=== PATIENT | male | born 1995 | race African-American/Black ===

== ENCOUNTER 2016-04-02 16:05 | Emergency (ER) | payer OTHER, SELFPAY ==
[2016-04-02 17:05] LABS: MEAN CORPUSCULAR HEMOGLOBIN 30.2 pg (27.0-33.0); MEAN CORPUSCULAR HGB CONC 34.1 g/dl (32.0-36.5); MEAN CORPUSCULAR VOLUME 88.8 fl (80.0-96.0); RED CELL DISTRIBUTION WIDTH 12.4 % (11.5-14.5)
[2016-04-02 17:19] LABS: AMPHETAMINES LEVEL URINE NEGATIVE (NEGATIVE); BENZODIAZEPINES URINE NEGATIVE (NEGATIVE); COCAINE METABOLITE URINE NEGATIVE (NEGATIVE); CONTROL LINE INT CTR LINE PRESENT; METHADONE URINE NEGATIVE (NEGATIVE); OPIATES URINE NEGATIVE (NEGATIVE); TRICYCLIC ANTIDEPRESS URINE NEGATIVE (NEGATIVE)
[2016-04-02 17:34] LABS: ALBUMIN 4.1 GM/DL (3.2-5.2); ALBUMIN/GLOBULIN RATIO 1.32 (1.00-1.93); ALKALINE PHOSPHATASE 74 U/L (45-117); ALT/SGPT 21 U/L (12-78); ANION GAP 9 MEQ/L (8-16); AST/SGOT 20 U/L (15-37); BILIRUBIN,DIRECT 0.2 MG/DL (0.0-0.2); BILIRUBIN,TOTAL 0.9 MG/DL (0.2-1.0); BLOOD UREA NITROGEN 15 MG/DL (7-18); CALCIUM LEVEL 9.3 MG/DL (8.5-10.1); CARBON DIOXIDE LEVEL 28 MEQ/L (21-32); CHLORIDE LEVEL 106 MEQ/L (98-107); CREATININE FOR GFR 1.11 MG/DL (0.70-1.30); GLOMERULAR FILTRATION RATE > 60.0 (>60); GLUCOSE, FASTING 98 MG/DL (70-105); SODIUM LEVEL 143 MEQ/L (136-145); TOTAL PROTEIN 7.2 GM/DL (6.4-8.2)
--- NOTE | 2016-04-02 18:21 | EDDOCDS ---
Physician Documentation [facility] Name: Jonatan England Age: 20 yrs Sex: Male : 1995 Arrival Date: 04/02/2016 Time: 16:05 Bed [facility] Private MD: Alfred Garcia Disposition: 04/02/16 18:09 Discharged to Home/Self Care. Impression: Major depressive disorder, single episode, mild. - Condition is Stable. - Discharge Instructions: Depression, Adult. - Medication Reconciliation, Local Pharmacy Hours form. - Follow up: Alfred Garcia DO; When: 2 - 3 days; Reason: Recheck today's complaints. Follow up: [facility]; When: 2 - 3 days; Reason: Recheck today's complaints. - Problem is new. - Symptoms have improved. - Notes: You were seen in the ED for your depression. Bloodwork showed no other acute medical findings at this time. As you are having no thoughts of harming self or others you may return home to see Dr. Garcia for recheck as well as the mental health referral provided to you by your psychosocial assesor for counseling referral - please call to arrange these appointments in the morning. Return to the ED for any worsening depression, thoughts of harming self or other concerns. Historical: - Allergies: no known allergies; - Home Meds: 1. Fluoxetine Unknown Oral Unknown (Last dose: Unknown) - PMHx: Depression; Anxiety; codependency; - PSHx: none; - Social history: Smoking status: Patient uses tobacco products, light tobacco smoker. No barriers to communication noted, The patient speaks fluent Belgian, The patient lives. - Family history: No immediate family members are acutely ill. - : Unable to assess if pt is on anticoagulants. Unable to Verify Home Med List with the patient / caregiver. - Exposure Risk Screening:: None identified. Vital Signs: 04/02 16:07 BP 117 / 69; Pulse 88; Resp 16; Temp 96.9; Pulse Ox 98% ; Weight 61.23 kg / 134.99 lbs; cmb Height 6 ft. 4 in. (193.04 cm); Pain 0/10; 16:07 Body Mass Index 16.43 (61.23 kg, 193.04 cm) cmb MDM: 16:41 Consult PFS/PSA/Senior Procurement Specialist ordered. br1 16:41 PSA/PFS to call Nursing Telephoto Installer, to enter patient data on [place] Safe Act if patient br1 involuntarily admitted or transferred for SI or HI ordered. 16:41 Confirm accurate psychiatric medication list and times of last dosage ordered. br1 16:41 Detain Pt Until Medically/PFS Cleared ordered. br1 16:41 Acetaminophen Level Ordered. EDMS 16:41 Basic Metabolic Profile Ordered. EDMS 16:41 Complete Blood Count Ordered. EDMS 16:41 Drug Eval Toxicology ED Only Ordered. EDMS 16:41 Ethyl Alcohol (ethanol) Ordered. EDMS 16:41 Liver Profile Ordered. EDMS 16:41 Salicylate Level Ordered. EDMS 16:41 Thyroid Stimulating Hormone Ordered. EDMS 17:17 Financial registration complete. zo 17:19 [facility] Payment Agreement was scanned into [employer] and attached to record. zo 18:06 Acetaminophen Level Reviewed. br1 18:06 Drug Eval Toxicology ED Only Reviewed. br1 18:06 Salicylate Level Reviewed. br1 18:06 Basic Metabolic Profile Reviewed. br1 18:06 Complete Blood Count Reviewed. br1 18:06 Ethyl Alcohol (ethanol) Reviewed. br1 18:06 Liver Profile Reviewed. br1 18:06 Thyroid Stimulating Hormone Reviewed. br1 18:07 Consult PFS/PSA/Socail Worker: Cleared medically for eval ordered. br1 18:15 PSA Outpatient Referrals was scanned into [employer] and attached to record. jl 18:15 Consult PFS/PSA/Socail Worker: Cleared medically for eval complete. jl 18:16 Consult PFS/PSA/Senior Procurement Specialist complete. jl Signatures: Dispatcher [employer] EDRI Corey Cartwright, PSA PSA Kamila Aparicio Brian, MD MD br1 Donnell Curtis,RN RN mb9 The chart was reviewed and I authenticate all verbal orders and agree with the evaluation and treatment provided.Corrections: (The following items were deleted from the chart) 18:07 16:32 REGULAR DIET PLASTIC SANTOS+DIET ordered. EDMS EDMS 18:17 16:41 Consult PFS/PSA/Senior Procurement Specialist: Patient's case requires discussion with on-call br1 Psychiatrist ordered. br1 Attachments: 17:19 [facility] Payment Agreement zo MTDD
--- NOTE | 2016-04-02 18:21 | EDDOCDS ---
Nurse's Notes [facility] Name: Jonatan England Age: 20 yrs Sex: Male : 1995 Arrival Date: 04/02/2016 Time: 16:[address] [facility] Private MD: Alfred Garcia Diagnosis: Major depressive disorder, single episode, mild Presentation: 04/02 16:19 Presenting complaint: Patient states: "Last time I was here I had to go to [place] [address] mental health facility. I got really depressed and suicidal. I was on medications and I haven't taken them in a while because nobody told to stop or keep taking them and I just felt like I needed to come and talk to somebody.". pt denies SI/HI. Mental Health Triage Level: Level 1- Pt displays no suicidal or homicidal ideations and does not appear to be a danger to self or others. Adult Sepsis Screening: The patient does not have new or worsening altered mentation. Patient's respiratory rate is less than 22. Systolic blood pressure is greater than 100. Patient has a qSOFA score of 0- Negative Sepsis Screen. Suicide/Homicide risk assessment- the patient denies having any suicidal and/or homicidal ideations and does not present with any other emotional, behavioral or mental health complaints. Status: Patient is not a dental services director or dependent. Transition of care: patient was not received from another setting of care. 16:19 Acuity: ARIANNA Level 3 [facility] 16:19 Method Of Arrival: Walkin/Carried/[facility] Triage Assessment: 16:26 General: Appears in no apparent distress, Behavior is appropriate for age, cooperative. mb9 Pain: Denies pain. HIV screening NA for this visit Offered previously. Respiratory: Airway is patent Respiratory effort is even, unlabored. Historical: - Allergies: no known allergies; - Home Meds: 1. Fluoxetine Unknown Oral Unknown (Last dose: Unknown) - PMHx: Depression; Anxiety; codependency; - PSHx: none; - Social history: Smoking status: Patient uses tobacco products, light tobacco smoker. No barriers to communication noted, The patient speaks fluent Uzbek, The patient lives. - Family history: No immediate family members are acutely ill. - : Unable to assess if pt is on anticoagulants. Unable to Verify Home Med List with the patient / caregiver. - Exposure Risk Screening:: None identified. Screenin:12 Screening information is obtained from the patient. Fall risk: No risks identified. mb9 Assistance ADL's: requires no assistance with activities of daily living. Abuse/DV Screen: The patient / caregiver reports he/she is: not in a situation that causes fear, pain or injury. Nutritional screening: No deficits noted. Advance Directives: There is no active DNR order. home support is adequate. Assessment: 17:17 Reassessment: Patient appears in no apparent distress at this time. General: Appears mb9 comfortable, Behavior is appropriate for age, cooperative. Respiratory: Airway is patent Respiratory effort is even, unlabored. 18:12 Reassessment: Patient appears in no apparent distress at this time. General: Appears in mb9 no apparent distress, comfortable, Behavior is appropriate for age, cooperative. Respiratory: Airway is patent Respiratory effort is even, unlabored. Vital Signs: 16:07 BP 117 / 69; Pulse 88; Resp 16; Temp 96.9; Pulse Ox 98% ; Weight 61.23 kg; Height 6 ft. cmb 4 in. (193.04 cm); Pain 0/10; 16:07 Body Mass Index 16.43 (61.23 kg, 193.04 cm) [facility] Vitals: 16:07 Log In Time: April 02, 2016 at 16:05. [facility] ED Course: 16:07 Patient visited by Edna Trejo. cmb 16:07 Alfred Garcia DO is Private Physician. cmb 16:07 Patient moved to [facility] cmb 16:09 RN notified that patient meets Red Flag criteria. cmb 16:10 Patient moved to [facility] sew 16:16 Neo Asencio MD is Attending Physician. br1 16:22 Triage Initiated mb9 16:34 Patient visited by Chayo Lim. sew 16:34 Psych Safety Check: Location: Psych Room. Visual Assessment: Cooperative. sew 16:41 Patient visited by Neo Asencio MD. br1 17:10 Psych Safety Check: Location: Psych Room. Visual Assessment: Cooperative. mb9 17:16 Patient visited by Donnell Curtis RN. mb9 17:19 [facility] Payment Agreement was scanned into [employer] and attached to record. zo 17:24 Patient name changed from Khrafael\\S\\\\S\\England\\S\\ to Khane\\S\\ \\S\\England. EDMS 17:29 Patient visited by Chayo Lim. sew 17:29 Psych Safety Check: Location: Psych Room. Visual Assessment: Cooperative. sew 17:41 Patient visited by Chayo Lim. sew 17:41 Psych Safety Check: Location: Psych Room. Visual Assessment: Cooperative. sew 17:53 Psych Safety Check: Location: Psych Room. Visual Assessment: Cooperative. sew 17:54 Patient visited by Chayo Lim. sew 17:54 Patient visited by Corey Cartwright PSA. jl 18:09 Alfred Garcia DO is Referral Physician. br1 18:09 [facility] is Referral Physician. br1 18:12 The patient / caregiver is instructed regarding the plan of care and ED course. mb9 18:12 Psych Safety Check: Location: Psych Room. Visual Assessment: Cooperative. mb9 18:12 No IV's were initiated during this patient's visit. No procedures done that require mb9 assistance. 18:15 GARY Outpatient Referrals was scanned into [employer] and attached to record. jl Order Results: Lab Order: Acetaminophen Level; SPEC'M 04/02/16 16:53 Test: ACETAMINOPHEN LEVEL; Value: < 2.0; Range: 10.0-30.0; Abnormal: Below low normal; Units: UG/ML; Status: F Lab Order: Basic Metabolic Profile; SPEC'M 04/02/16 16:53 Test: GLUCOSE, FASTING; Value: 98; Range: 70-105; Units: MG/DL; Status: F Test: BLOOD UREA NITROGEN; Value: 15; Range: 7-18; Units: MG/DL; Status: F Test: CREATININE FOR GFR; Value: 1.11; Range: 0.70-1.30; Units: MG/DL; Status: F Test: GLOMERULAR FILTRATION RATE; Value: > 60.0; Range: >60; Status: F Test: SODIUM LEVEL; Value: 143; Range: 136-145; Units: MEQ/L; Status: F Test: POTASSIUM SERUM; Value: 4.0; Range: 3.5-5.1; Units: MEQ/L; Status: F Test: CHLORIDE LEVEL; Value: 106; Range: 98-107; Units: MEQ/L; Status: F Test: CARBON DIOXIDE LEVEL; Value: 28; Range: 21-32; Units: MEQ/L; Status: F Test: ANION GAP; Value: 9; Range: 8-16; Units: MEQ/L; Status: F Test: CALCIUM LEVEL; Value: 9.3; Range: 8.5-10.1; Units: MG/DL; Status: F Test Note: ; Units are mL/min/1.73 m2 Chronic Kidney Disease Staging per NKF: Stage I & II GFR >=60 Normal to Mildly Decreased Stage III GFR 30-59 Moderately Decreased Stage IV GFR 15-29 Severely Decreased Stage V GFR <15 Very Little GFR Left ESRD GFR <15 on TERMINAL OPERATOR Lab Order: Complete Blood Count; SPEC'M 04/02/16 16:53 Test: WHITE BLOOD COUNT; Value: 5.0; Range: 4.0-10.0; Units: K/mm3; Status: F Test: RED BLOOD COUNT; Value: 5.09; Range: 4.30-6.10; Units: M/mm3; Status: F Test: HEMOGLOBIN; Value: 15.4; Range: 14.0-18.0; Units: g/dl; Status: F Test: HEMATOCRIT; Value: 45.2; Range: 42.0-52.0; Units: %; Status: F Test: MEAN CORPUSCULAR VOLUME; Value: 88.8; Range: 80.0-96.0; Units: fl; Status: F Test: MEAN CORPUSCULAR HEMOGLOBIN; Value: 30.2; Range: 27.0-33.0; Units: pg; Status: F Test: MEAN CORPUSCULAR HGB CONC; Value: 34.1; Range: 32.0-36.5; Units: g/dl; Status: F Test: RED CELL DISTRIBUTION WIDTH; Value: 12.4; Range: 11.5-14.5; Units: %; Status: F Test: PLATELET COUNT, AUTOMATED; Value: 193; Range: 150-450; Units: k/mm3; Status: F Lab Order: Drug Eval Toxicology ED Only; SPEC'M 04/02/16 16:53 Test: AMPHETAMINES LEVEL URINE; Value: NEGATIVE; Range: NEGATIVE; Status: F Test: BARBITURATES URINE; Value: NEGATIVE; Range: NEGATIVE; Status: F Test: BENZODIAZEPINES URINE; Value: NEGATIVE; Range: NEGATIVE; Status: F Test: CANNABINOIDS URINE; Value: POSITIVE; Range: NEGATIVE; Abnormal: Above high normal; Status: F Test: COCAINE METABOLITE URINE; Value: NEGATIVE; Range: NEGATIVE; Status: F Test: METHADONE URINE; Value: NEGATIVE; Range: NEGATIVE; Status: F Test: OPIATES URINE; Value: NEGATIVE; Range: NEGATIVE; Status: F Test: TRICYCLIC ANTIDEPRESS URINE; Value: NEGATIVE; Range: NEGATIVE; Status: F Test Note: ; FALSE POSITIVE RESULTS CAN BE CAUSED BY THE USE OF PANTOPRAZOLE (PROTONIX). Lab Order: Ethyl Alcohol (ethanol); SPEC' 04/02/16 16:53 Test: ETHYL ALCOHOL (ETHANOL); Value: < 0.003; Range: 0.000-0.010; Units: %; Status: F Lab Order: Liver Profile; [facility] 04/02/16 16:53 Test: AST/SGOT; Value: 20; Range: 15-37; Units: U/L; Status: F Test: ALT/SGPT; Value: 21; Range: 12-78; Units: U/L; Status: F Test: ALKALINE PHOSPHATASE; Value: 74; Range: 45-117; Units: U/L; Status: F Test: BILIRUBIN,TOTAL; Value: 0.9; Range: 0.2-1.0; Units: MG/DL; Status: F Test: BILIRUBIN,DIRECT; Value: 0.2; Range: 0.0-0.2; Units: MG/DL; Status: F Test: TOTAL PROTEIN; Value: 7.2; Range: 6.4-8.2; Units: GM/DL; Status: F Test: ALBUMIN; Value: 4.1; Range: 3.2-5.2; Units: GM/DL; Status: F Test: ALBUMIN/GLOBULIN RATIO; Value: 1.32; Range: 1.00-1.93; Status: F Lab Order: Salicylate Level; SPEC 04/02/16 16:53 Test: SALICYLATE LEVEL; Value: < 1.7; Range: 5.0-30.0; Abnormal: Below low normal; Units: MG/DL; Status: F Lab Order: Thyroid Stimulating Hormone; 04/02/16 16:53 Test: THYROID STIMULATING HORMONE; Value: 0.412; Range: 0.358-3.740; Units: uIU/ML; Status: F Outcome: 18:09 Discharge ordered by Provider. br1 18:19 Discharge Assessment: Patient awake, alert and oriented x 3. No cognitive and/or mb9 functional deficits noted. Patient verbalized understanding of disposition instructions. patient administered narcotics - no. The following High Risk Discharge criteria are identified: None. Discharged to home ambulatory. Condition: good Condition: stable Condition: improved. Discharge instructions given to patient, Instructed on discharge instructions, follow up and referral plans. medication usage, Demonstrated understanding of instructions, medications, Pt was receptive of discharge instructions/ teaching. No special radiology studies were completed. Property :Personal belongings accompany Pt. 18:20 Patient left the ED. mb9 Signatures: Dispatcher [employer] EDMS Corey Cartwright PSA PSA jl Olin, Zoeann zo Roggie, Brian, MD MD br1 Edna Trejo Sarah sew Belles, MichaelRN RN mb9 DEE
--- NOTE | 2016-04-04 19:21 | EDDOCDS ---
Physician Documentation [facility] Name: Jonatan England Age: 20 yrs Sex: Male : 1995 Arrival Date: 04/02/2016 Time: 16:05 Bed [facility] Private MD: Alfred Garcia Disposition: 04/02/16 18:09 Discharged to Home/Self Care. Impression: Major depressive disorder, single episode, mild. - Condition is Stable. - Discharge Instructions: Depression, Adult. - Medication Reconciliation, Local Pharmacy Hours form. - Follow up: Alfred Garcia DO; When: 2 - 3 days; Reason: Recheck today's complaints. Follow up: [facility]; When: 2 - 3 days; Reason: Recheck today's complaints. - Problem is new. - Symptoms have improved. - Notes: You were seen in the ED for your depression. Bloodwork showed no other acute medical findings at this time. As you are having no thoughts of harming self or others you may return home to see Dr. Garcia for recheck as well as the mental health referral provided to you by your psychosocial assesor for counseling referral - please call to arrange these appointments in the morning. Return to the ED for any worsening depression, thoughts of harming self or other concerns. Historical: - Allergies: no known allergies; - Home Meds: 1. Fluoxetine Unknown Oral Unknown (Last dose: Unknown) - PMHx: Depression; Anxiety; codependency; - PSHx: none; - Social history: Smoking status: Patient uses tobacco products, light tobacco smoker. No barriers to communication noted, The patient speaks fluent Croatian, The patient lives. - Family history: No immediate family members are acutely ill. - : Unable to assess if pt is on anticoagulants. Unable to Verify Home Med List with the patient / caregiver. - Exposure Risk Screening:: None identified. Vital Signs: 04/02 16:07 BP 117 / 69; Pulse 88; Resp 16; Temp 96.9; Pulse Ox 98% ; Weight 61.23 kg / 134.99 lbs; cmb Height 6 ft. 4 in. (193.04 cm); Pain 0/10; 16:07 Body Mass Index 16.43 (61.23 kg, 193.04 cm) cmb MDM: 16:41 Consult PFS/PSA/Feed Handler ordered. br1 16:41 PSA/PFS to call Nursing Neon Sign Worker, to enter patient data on [place] Safe Act if patient br1 involuntarily admitted or transferred for SI or HI ordered. 16:41 Confirm accurate psychiatric medication list and times of last dosage ordered. br1 16:41 Detain Pt Until Medically/PFS Cleared ordered. br1 16:41 Acetaminophen Level Ordered. EDMS 16:41 Basic Metabolic Profile Ordered. EDMS 16:41 Complete Blood Count Ordered. EDMS 16:41 Drug Eval Toxicology ED Only Ordered. EDMS 16:41 Ethyl Alcohol (ethanol) Ordered. EDMS 16:41 Liver Profile Ordered. EDMS 16:41 Salicylate Level Ordered. EDMS 16:41 Thyroid Stimulating Hormone Ordered. EDMS 17:17 Financial registration complete. zo 17:19 [facility] Payment Agreement was scanned into [employer] and attached to record. zo 18:06 Acetaminophen Level Reviewed. br1 18:06 Drug Eval Toxicology ED Only Reviewed. br1 18:06 Salicylate Level Reviewed. br1 18:06 Basic Metabolic Profile Reviewed. br1 18:06 Complete Blood Count Reviewed. br1 18:06 Ethyl Alcohol (ethanol) Reviewed. br1 18:06 Liver Profile Reviewed. br1 18:06 Thyroid Stimulating Hormone Reviewed. br1 18:07 Consult PFS/PSA/Socail Worker: Cleared medically for eval ordered. br1 18:15 PSA Outpatient Referrals was scanned into [employer] and attached to record. jl 18:15 Consult PFS/PSA/Socail Worker: Cleared medically for eval complete. jl 18:16 Consult PFS/PSA/Feed Handler complete. jl 18:20 PSA/PFS to call Nursing Neon Sign Worker, to enter patient data on [place] Safe Act if patient mb9 involuntarily admitted or transferred for SI or HI complete. 04/03 10:18 T-Sheet-- Draft Copy was scanned into [employer] and attached to record. gb Signatures: Dispatcher [employer] EDMS Corey Cartwright, PSA PSA Vernell Norwood, Reg Reg Kamila Mcmullen Brian, MD MD br1 Donnell Curtis RN RN mb9 The chart was reviewed and I authenticate all verbal orders and agree with the evaluation and treatment provided.Corrections: (The following items were deleted from the chart) 04/02 18:07 16:32 REGULAR DIET PLASTIC SANTOS+DIET ordered. EDMS EDMS 18:17 16:41 Consult PFS/PSA/Feed Handler: Patient's case requires discussion with on-call moraima Psychiatrist ordered. moraima Attachments: 17:19 [facility] Payment Agreement zo 04/03 10:18 T-Sheet-- Draft Copy gb Chart Complete MTDD
--- NOTE | 2016-04-04 19:21 | EDDOCDS ---
Nurse's Notes Name: Jonatan England Age: 20 yrs Sex: Male : 1995 Arrival Date: 04/02/2016 Time: 16:05 Bed [facility] Private MD: Alfred Garcia Diagnosis: Major depressive disorder, single episode, mild Presentation: 04/02 16:19 Presenting complaint: Patient states: "Last time I was here I had to go to [place] [address] mental health facility. I got really depressed and suicidal. I was on medications and I haven't taken them in a while because nobody told to stop or keep taking them and I just felt like I needed to come and talk to somebody.". pt denies SI/HI. Mental Health Triage Level: Level 1- Pt displays no suicidal or homicidal ideations and does not appear to be a danger to self or others. Adult Sepsis Screening: The patient does not have new or worsening altered mentation. Patient's respiratory rate is less than 22. Systolic blood pressure is greater than 100. Patient has a qSOFA score of 0- Negative Sepsis Screen. Suicide/Homicide risk assessment- the patient denies having any suicidal and/or homicidal ideations and does not present with any other emotional, behavioral or mental health complaints. Status: Patient is not a clinical services director or dependent. Transition of care: patient was not received from another setting of care. 16:19 Acuity: ARIANNA Level 3 [facility] 16:19 Method Of Arrival: Walkin/Carried/Asstd [facility] Triage Assessment: 16:26 General: Appears in no apparent distress, Behavior is appropriate for age, cooperative. mb9 Pain: Denies pain. HIV screening NA for this visit Offered previously. Respiratory: Airway is patent Respiratory effort is even, unlabored. Historical: - Allergies: no known allergies; - Home Meds: 1. Fluoxetine Unknown Oral Unknown (Last dose: Unknown) - PMHx: Depression; Anxiety; codependency; - PSHx: none; - Social history: Smoking status: Patient uses tobacco products, light tobacco smoker. No barriers to communication noted, The patient speaks fluent Swedish, The patient lives. - Family history: No immediate family members are acutely ill. - : Unable to assess if pt is on anticoagulants. Unable to Verify Home Med List with the patient / caregiver. - Exposure Risk Screening:: None identified. Screenin:12 Screening information is obtained from the patient. Fall risk: No risks identified. mb9 Assistance ADL's: requires no assistance with activities of daily living. Abuse/DV Screen: The patient / caregiver reports he/she is: not in a situation that causes fear, pain or injury. Nutritional screening: No deficits noted. Advance Directives: There is no active DNR order. home support is adequate. Assessment: 17:17 Reassessment: Patient appears in no apparent distress at this time. General: Appears mb9 comfortable, Behavior is appropriate for age, cooperative. Respiratory: Airway is patent Respiratory effort is even, unlabored. 18:12 Reassessment: Patient appears in no apparent distress at this time. General: Appears in mb9 no apparent distress, comfortable, Behavior is appropriate for age, cooperative. Respiratory: Airway is patent Respiratory effort is even, unlabored. Mental Health Eval: 18:18 Mental health consult is initiated at 17:40. Status: The patient is not a clinical services director or dependent. [facility] Behavioral Health: The patient is not an established patient of [facility] Behavioral Health. Referral Information: Evaluation referral is generated by the patient himself / herself. The patient was referred for evaluation because of ongoing depression & anxiety, with no current treatment. Subjective: The patients chief complaint is "I was sent to [place] a while ago because I felt suicidal and wanted to be watched, but I stopped my Prozac nallely I felt so good". Delusions are denied. Patient's mood is approriate. Hallucinations are denied. .Patient presented to ED requesting assistance with re-entering treatment. He describes suffering from depression & anxiety for much of his life- essentially since he was old enough to recognize it. He denies having any treatment as a child or adolescent, as his mother was an A/D soldier who basically told him that he was fine & didn't need counseling or medication. He states that he was here & transferred to [place] in December. Following D/C he says that he was taking Prozac & scheduled follow up, although admits that he was feeling so well that he did not follow up, nor did he continue the Prozac upon reaching the end of the Rx. He states that he has been steadily feeling more depressed & anxious, prompting his visit here today. He denies having any thoughts of harming himself or anyone else & is presently seeking referrals for follow up. Mental Health history: anxiety, depression, sleep disturbance, suicide ideation without attempts or gestures Mental Health Admissions: [facility]: 12/2015 Current Outpatient Mental Health Services: None. Current living environment is The patient currently lives with a roommate. Patient presents to Emergency Department with the following symptoms within the past 2 weeks: anxiety, depressed mood, sleep disturbance - erratic. Substance abuse: Pt denies. Mental status exam: Patients appearance is appropriate, Patient's behavior is cooperative, Speech is normal. Affect is appropriate. Mood is appropriate. Hallucinations are denied. Appetite is normal. Memory is good. Energy level is normal. Content of thought is normal. Thought process is intact. Cognitive level is oriented to person, place, time and situation Patient's insight is good. Judgement is fair. Rapport with interviewer is good. Suicidal Ideation is denied. Homicidal ideation is denied. Disposition: Medically cleared for disposition by Neo Asencio MD Psychiatric Consult is deferred per ED physician, Dr Asencio. The patient has a safe destination which is home. [facility] Admission Criteria: Not Applicable. Vital Signs: 16:07 BP 117 / 69; Pulse 88; Resp 16; Temp 96.9; Pulse Ox 98% ; Weight 61.23 kg; Height 6 ft. cmb 4 in. (193.04 cm); Pain 0/10; 16:07 Body Mass Index 16.43 (61.23 kg, 193.04 cm) cmb Vitals: 16:07 Log In Time: April 02, 2016 at 16:05. cmb ED Course: 16:07 Patient visited by Edna Trejo. cmb 16:07 Alfred Garcia DO is Private Physician. cmb 16:07 Patient moved to Waiting cmb 16:09 RN notified that patient meets Red Flag criteria. cmb 16:10 Patient moved to [facility] sew 16:16 Neo Asencio MD is Attending Physician. br1 16:22 Triage Initiated mb9 16:34 Patient visited by Chayo Lim. sew 16:34 Psych Safety Check: Location: Psych Room. Visual Assessment: Cooperative. sew 16:41 Patient visited by Neo Asencio MD. br1 17:10 Psych Safety Check: Location: Psych Room. Visual Assessment: Cooperative. mb9 17:16 Patient visited by Donnell Curtis RN. mb9 17:19 [facility] Payment Agreement was scanned into [employer] and attached to record. zo 17:24 Patient name changed from Jonatan\\S\\\\S\\England\\S\\ to Jonatan\\S\\ \\S\\England. EDMS 17:29 Patient visited by Chayo Lim. sew 17:29 Psych Safety Check: Location: Psych Room. Visual Assessment: Cooperative. sew 17:41 Patient visited by Chayo Lim. sew 17:41 Psych Safety Check: Location: Psych Room. Visual Assessment: Cooperative. sew 17:53 Psych Safety Check: Location: Psych Room. Visual Assessment: Cooperative. sew 17:54 Patient visited by Chayo Lim. sew 17:54 Patient visited by Corey Cartwright PSA. jl 18:09 Alfred Garcia DO is Referral Physician. br1 18:09 [facility] is Referral Physician. br1 18:12 The patient / caregiver is instructed regarding the plan of care and ED course. mb9 18:12 Psych Safety Check: Location: Psych Room. Visual Assessment: Cooperative. mb9 18:12 No IV's were initiated during this patient's visit. No procedures done that require mb9 assistance. 18:15 GARY Outpatient Referrals was scanned into [employer] and attached to record. jl 04/03 10:18 T-Sheet-- Draft Copy was scanned into [employer] and attached to record. gb Order Results: Lab Order: Acetaminophen Level; SPEC'M 04/02/16 16:53 Test: ACETAMINOPHEN LEVEL; Value: < 2.0; Range: 10.0-30.0; Abnormal: Below low normal; Units: UG/ML; Status: F Lab Order: Basic Metabolic Profile; SPEC'M 04/02/16 16:53 Test: GLUCOSE, FASTING; Value: 98; Range: 70-105; Units: MG/DL; Status: F Test: BLOOD UREA NITROGEN; Value: 15; Range: 7-18; Units: MG/DL; Status: F Test: CREATININE FOR GFR; Value: 1.11; Range: 0.70-1.30; Units: MG/DL; Status: F Test: GLOMERULAR FILTRATION RATE; Value: > 60.0; Range: >60; Status: F Test: SODIUM LEVEL; Value: 143; Range: 136-145; Units: MEQ/L; Status: F Test: POTASSIUM SERUM; Value: 4.0; Range: 3.5-5.1; Units: MEQ/L; Status: F Test: CHLORIDE LEVEL; Value: 106; Range: 98-107; Units: MEQ/L; Status: F Test: CARBON DIOXIDE LEVEL; Value: 28; Range: 21-32; Units: MEQ/L; Status: F Test: ANION GAP; Value: 9; Range: 8-16; Units: MEQ/L; Status: F Test: CALCIUM LEVEL; Value: 9.3; Range: 8.5-10.1; Units: MG/DL; Status: F Test Note: ; Units are mL/min/1.73 m2 Chronic Kidney Disease Staging per NKF: Stage I & II GFR >=60 Normal to Mildly Decreased Stage III GFR 30-59 Moderately Decreased Stage IV GFR 15-29 Severely Decreased Stage V GFR <15 Very Little GFR Left ESRD GFR <15 on BEEF [employer] Lab Order: Complete Blood Count; SPEC'M 04/02/16 16:53 Test: WHITE BLOOD COUNT; Value: 5.0; Range: 4.0-10.0; Units: K/mm3; Status: F Test: RED BLOOD COUNT; Value: 5.09; Range: 4.30-6.10; Units: M/mm3; Status: F Test: HEMOGLOBIN; Value: 15.4; Range: 14.0-18.0; Units: g/dl; Status: F Test: HEMATOCRIT; Value: 45.2; Range: 42.0-52.0; Units: %; Status: F Test: MEAN CORPUSCULAR VOLUME; Value: 88.8; Range: 80.0-96.0; Units: fl; Status: F Test: MEAN CORPUSCULAR HEMOGLOBIN; Value: 30.2; Range: 27.0-33.0; Units: pg; Status: F Test: MEAN CORPUSCULAR HGB CONC; Value: 34.1; Range: 32.0-36.5; Units: g/dl; Status: F Test: RED CELL DISTRIBUTION WIDTH; Value: 12.4; Range: 11.5-14.5; Units: %; Status: F Test: PLATELET COUNT, AUTOMATED; Value: 193; Range: 150-450; Units: k/mm3; Status: F Lab Order: Drug Eval Toxicology ED Only; SPEC'M 04/02/16 16:53 Test: AMPHETAMINES LEVEL URINE; Value: NEGATIVE; Range: NEGATIVE; Status: F Test: BARBITURATES URINE; Value: NEGATIVE; Range: NEGATIVE; Status: F Test: BENZODIAZEPINES URINE; Value: NEGATIVE; Range: NEGATIVE; Status: F Test: CANNABINOIDS URINE; Value: POSITIVE; Range: NEGATIVE; Abnormal: Above high normal; Status: F Test: COCAINE METABOLITE URINE; Value: NEGATIVE; Range: NEGATIVE; Status: F Test: METHADONE URINE; Value: NEGATIVE; Range: NEGATIVE; Status: F Test: OPIATES URINE; Value: NEGATIVE; Range: NEGATIVE; Status: F Test: TRICYCLIC ANTIDEPRESS URINE; Value: NEGATIVE; Range: NEGATIVE; Status: F Test Note: ; FALSE POSITIVE RESULTS CAN BE CAUSED BY THE USE OF PANTOPRAZOLE (PROTONIX). Lab Order: Ethyl Alcohol (ethanol); SPEC'M 04/02/16 16:53 Test: ETHYL ALCOHOL (ETHANOL); Value: < 0.003; Range: 0.000-0.010; Units: %; Status: F Lab Order: Liver Profile; SPEC'M 04/02/16 16:53 Test: AST/SGOT; Value: 20; Range: 15-37; Units: U/L; Status: F Test: ALT/SGPT; Value: 21; Range: 12-78; Units: U/L; Status: F Test: ALKALINE PHOSPHATASE; Value: 74; Range: 45-117; Units: U/L; Status: F Test: BILIRUBIN,TOTAL; Value: 0.9; Range: 0.2-1.0; Units: MG/DL; Status: F Test: BILIRUBIN,DIRECT; Value: 0.2; Range: 0.0-0.2; Units: MG/DL; Status: F Test: TOTAL PROTEIN; Value: 7.2; Range: 6.4-8.2; Units: GM/DL; Status: F Test: ALBUMIN; Value: 4.1; Range: 3.2-5.2; Units: GM/DL; Status: F Test: ALBUMIN/GLOBULIN RATIO; Value: 1.32; Range: 1.00-1.93; Status: F Lab Order: Salicylate Level; SPEC'M 04/02/16 16:53 Test: SALICYLATE LEVEL; Value: < 1.7; Range: 5.0-30.0; Abnormal: Below low normal; Units: MG/DL; Status: F Lab Order: Thyroid Stimulating Hormone; SPEC'M 04/02/16 16:53 Test: THYROID STIMULATING HORMONE; Value: 0.412; Range: 0.358-3.740; Units: uIU/ML; Status: F Outcome: 04/02 18:09 Discharge ordered by Provider. br1 18:19 Discharge Assessment: Patient awake, alert and oriented x 3. No cognitive and/or mb9 functional deficits noted. Patient verbalized understanding of disposition instructions. patient administered narcotics - no. The following High Risk Discharge criteria are identified: None. Discharged to home ambulatory. Condition: good Condition: stable Condition: improved. Discharge instructions given to patient, Instructed on discharge instructions, follow up and referral plans. medication usage, Demonstrated understanding of instructions, medications, Pt was receptive of discharge instructions/ teaching. No special radiology studies were completed. Property :Personal belongings accompany Pt. 18:20 Patient left the ED. mb9 Signatures: Dispatcher [employer] EDMS Corey Cartwright, PSA PSA Vernell Norwood, Kamila Tsang Brian, MD MD br1 Edna Trejo Sarah sew Belles, Michael, RN RN mb9 Chart Complete MTDD
--- NOTE | 2016-04-04 19:21 | EDDOCDS ---
Physician Documentation [facility] Name: Jonatan England Age: 20 yrs Sex: Male : 1995 Arrival Date: 04/02/2016 Time: 16:05 Bed [facility] Private MD: Alfred Garcia Disposition: 04/02/16 18:09 Discharged to Home/Self Care. Impression: Major depressive disorder, single episode, mild. - Condition is Stable. - Discharge Instructions: Depression, Adult. - Medication Reconciliation, Local Pharmacy Hours form. - Follow up: Alfred Garcia DO; When: 2 - 3 days; Reason: Recheck today's complaints. Follow up: [facility]; When: 2 - 3 days; Reason: Recheck today's complaints. - Problem is new. - Symptoms have improved. - Notes: You were seen in the ED for your depression. Bloodwork showed no other acute medical findings at this time. As you are having no thoughts of harming self or others you may return home to see Dr. Garcia for recheck as well as the mental health referral provided to you by your psychosocial assesor for counseling referral - please call to arrange these appointments in the morning. Return to the ED for any worsening depression, thoughts of harming self or other concerns. Historical: - Allergies: no known allergies; - Home Meds: 1. Fluoxetine Unknown Oral Unknown (Last dose: Unknown) - PMHx: Depression; Anxiety; codependency; - PSHx: none; - Social history: Smoking status: Patient uses tobacco products, light tobacco smoker. No barriers to communication noted, The patient speaks fluent Gibraltarian, The patient lives. - Family history: No immediate family members are acutely ill. - : Unable to assess if pt is on anticoagulants. Unable to Verify Home Med List with the patient / caregiver. - Exposure Risk Screening:: None identified. Vital Signs: 04/02 16:07 BP 117 / 69; Pulse 88; Resp 16; Temp 96.9; Pulse Ox 98% ; Weight 61.23 kg / 134.99 lbs; cmb Height 6 ft. 4 in. (193.04 cm); Pain 0/10; 16:07 Body Mass Index 16.43 (61.23 kg, 193.04 cm) cmb MDM: 16:41 Consult PFS/PSA/Insulation Cupola Operator ordered. br1 16:41 PSA/PFS to call Nursing Flight Operations Inspector, to enter patient data on [place] Safe Act if patient br1 involuntarily admitted or transferred for SI or HI ordered. 16:41 Confirm accurate psychiatric medication list and times of last dosage ordered. br1 16:41 Detain Pt Until Medically/PFS Cleared ordered. br1 16:41 Acetaminophen Level Ordered. EDMS 16:41 Basic Metabolic Profile Ordered. EDMS 16:41 Complete Blood Count Ordered. EDMS 16:41 Drug Eval Toxicology ED Only Ordered. EDMS 16:41 Ethyl Alcohol (ethanol) Ordered. EDMS 16:41 Liver Profile Ordered. EDMS 16:41 Salicylate Level Ordered. EDMS 16:41 Thyroid Stimulating Hormone Ordered. EDMS 17:17 Financial registration complete. zo 17:19 [place] Payment Agreement was scanned into [employer] and attached to record. zo 18:06 Acetaminophen Level Reviewed. br1 18:06 Drug Eval Toxicology ED Only Reviewed. br1 18:06 Salicylate Level Reviewed. br1 18:06 Basic Metabolic Profile Reviewed. br1 18:06 Complete Blood Count Reviewed. br1 18:06 Ethyl Alcohol (ethanol) Reviewed. br1 18:06 Liver Profile Reviewed. br1 18:06 Thyroid Stimulating Hormone Reviewed. br1 18:07 Consult PFS/PSA/Socail Worker: Cleared medically for eval ordered. br1 18:15 PSA Outpatient Referrals was scanned into [employer] and attached to record. jl 18:15 Consult PFS/PSA/Socail Worker: Cleared medically for eval complete. jl 18:16 Consult PFS/PSA/Insulation Cupola Operator complete. jl 18:20 PSA/PFS to call Nursing Flight Operations Inspector, to enter patient data [place] Safe [place] if patient mb9 involuntarily admitted or transferred for SI or HI complete. 04/03 10:18 T-Sheet-- Draft Copy was scanned into [employer] and attached to record. gb Signatures: Dispatcher [employer] EDMS Corey Cartwright, PSA PSA Vernell Norwood, Reg Reg Kamila Mcmullen Brian, MD MD br1 Donnell Curtis RN RN mb9 The chart was reviewed and I authenticate all verbal orders and agree with the evaluation and treatment provided.Corrections: (The following items were deleted from the chart) 04/02 18:07 16:32 REGULAR DIET PLASTIC SANTOS+DIET ordered. EDMS EDMS 18:17 16:41 Consult PFS/PSA/Insulation Cupola Operator: Patient's case requires discussion with on-call moraima Psychiatrist ordered. moraima Attachments: 17:19 [place] Payment Agreement zo 04/03 10:18 T-Sheet-- Draft Copy gb Chart Complete MTDD
== END 2016-04-02 18:20 | disposition home or self-care (01) ==
LOC: M ED 16:05
DX: F32.0 Major depressive disorder, single episode, mild (principal); F41.9 Anxiety disorder, unspecified; Z65.8 Other specified problems related to psychosocial circumstances; Z72.0 Tobacco use
CPT/HCPCS: 80048; 80076; 80306; 84443; 85027; 99283; G0480

== ENCOUNTER 2016-09-16 01:51 | Emergency (ER) | payer OTHER ==
[2016-09-16] MEDS ORDERED: diphenhydrAMINE 25 MG CAP PO ONE (03:00)
[2016-09-16 03:33] VITALS: BP 126/63
== END 2016-09-16 03:51 | disposition home or self-care (01) ==
LOC: M ED 03:00
DX: L29.9 Pruritus, unspecified (principal)

== ENCOUNTER → 2018-06-15 | Outpatient (REF) | payer OTHER ==
[2018-06-15 14:44] LABS: CHLAMYDIA DNA AMPLIFICATION NEGATIVE (NEGATIVE); GC DNA AMPLIFICATION NEGATIVE (NEGATIVE)
[2018-06-15 18:09] LABS: BASO # 0.1 10^3/uL (0.0-0.2); BASO % 1.1 % (0.0-1.0); EOS # 0.1 10^3/uL (0.0-0.50); EOS % 1.9 % (0.0-3.0); HEMATOCRIT 48.8 % (42.0-52.0); HEMOGLOBIN 16.4 g/dl (13.5-17.5); LYMPH # 1.7 10^3/uL (1.5-6.5); LYMPH % 35.9 % (24.0-44.0); MEAN CORPUSCULAR HEMOGLOBIN 29.3 pg (27.0-33.0); MEAN CORPUSCULAR HGB CONC 33.6 g/dl (32.0-36.5); MEAN CORPUSCULAR VOLUME 87.3 fl (80.0-96.0); MONO # 0.4 10^3/uL (0.0-0.8); MONO % 8.8 % (0.0-5.0); NEUTROPHILS # 2.5 10^3/uL (1.8-7.7); NEUTROPHILS % 52.3 % (36.0-66.0); PLATELET COUNT, AUTOMATED 248 10^3/uL (150-450); RED BLOOD COUNT 5.59 10^6/uL (4.30-6.10); WHITE BLOOD COUNT 4.8 10^3/uL (4.0-10.0)
[2018-06-15 18:26] LABS: ALBUMIN 4.5 GM/DL (3.2-5.2); ALT/SGPT 16 U/L (12-78); BILIRUBIN,TOTAL 0.9 MG/DL (0.2-1.0); BLOOD UREA NITROGEN 11 MG/DL (7-18); CARBON DIOXIDE LEVEL 28 MEQ/L (21-32); CHLORIDE LEVEL 102 MEQ/L (98-107); CHOLESTEROL LEVEL 142 MG/DL (<200); CHOLESTEROL RISK RATIO 3.302 (<5); CREATININE FOR GFR 1.12 MG/DL (0.70-1.30); GLOMERULAR FILTRATION RATE > 60.0 (>60); GLUCOSE, FASTING 89 MG/DL (70-100); HDL CHOLESTEROL 43 MG/DL (>40); LDL CHOLESTEROL 88 MG/DL (<100); NON-HDL-C 99 MG/DL; POTASSIUM SERUM 4.2 MEQ/L (3.5-5.1); SODIUM LEVEL 139 MEQ/L (136-145); TOTAL 25(OH) VITAMIN D 19.1 NG/ML (30.0-100.0); TOTAL PROTEIN 7.9 GM/DL (6.4-8.2); TRIGLYCERIDES LEVEL 53 MG/DL (<150)
[2018-06-15 18:54] LABS: HEMOGLOBIN A1c 5.3 %
[2018-06-16 10:57] LABS: HEPATITIS B SURFACE ANTIBODY POSITIVE (POSITIVE); HEPATITIS B SURFACE ANTIGEN NEGATIVE (NEGATIVE)
[2018-06-16 11:05] LABS: HEPATITIS C VIRUS ABY INDEX 0.1 INDEX (<0.8); HIV 1&2 SCREEN CENTAUR NEGATIVE (NEGATIVE)
[2018-06-17 08:20] LABS: HEPATITIS A IgG TOTAL Positive (Negative); HSV TYPE II IgG SPECIFIC <0.91 index (0.00-0.90)
== END ==
LOC: M LAB REF 12:22
PROVIDERS: ATTEND Family Medicine
DX: Z11.3 Encounter for screening for infections with a predominantly sexual mode of transmission (principal); Z13.228 Encounter for screening for other metabolic disorders

== ENCOUNTER 2019-07-15 19:27 | Emergency (ER) | payer MEDICAID, OTHER, SELFPAY ==
[~2019-07-15] VITALS: Ht 190.5 cm; Wt 63.6 kg
[2019-07-15 19:27] VITALS: BP 108/69
== END 2019-07-15 20:44 | disposition home or self-care (01) ==
LOC: M ED 19:27
DX: F19.10 Other psychoactive substance abuse, uncomplicated (principal); F22 Delusional disorders; F17.200 Nicotine dependence, unspecified, uncomplicated

== ENCOUNTER 2019-07-20 16:21 | Emergency (ER) | payer SELFPAY ==
[~2019-07-20] VITALS: Ht 193 cm; Wt 63.6 kg
[2019-07-20 17:51] LABS: HEMATOCRIT 44.5 % (42.0-52.0); MEAN CORPUSCULAR HEMOGLOBIN 29.9 pg (27.0-33.0); MEAN CORPUSCULAR HGB CONC 33.7 g/dl (32.0-36.5); MEAN CORPUSCULAR VOLUME 88.6 fl (80.0-96.0); PLATELET COUNT, AUTOMATED 219 10^3/uL (150-450); RED BLOOD COUNT 5.02 10^6/uL (4.30-6.10); WHITE BLOOD COUNT 5.9 10^3/uL (4.0-10.0)
[2019-07-20 18:29] LABS: ACETAMINOPHEN LEVEL < 2.0 UG/ML (10.0-30.0); ALT/SGPT 18 U/L (12-78); AMPHETAMINES LEVEL URINE POSITIVE (NEGATIVE); BARBITURATES URINE NEGATIVE (NEGATIVE); BENZODIAZEPINES URINE NEGATIVE (NEGATIVE); BILIRUBIN,DIRECT 0.3 MG/DL (0.0-0.2); BLOOD UREA NITROGEN 9 MG/DL (7-18); CALCIUM LEVEL 9.8 MG/DL (8.5-10.1); CANNABINOIDS URINE POSITIVE (NEGATIVE); CARBON DIOXIDE LEVEL 26 MEQ/L (21-32); CHLORIDE LEVEL 103 MEQ/L (98-107); COCAINE METABOLITE URINE NEGATIVE (NEGATIVE); CREATININE FOR GFR 1.21 MG/DL (0.70-1.30); ETHYL ALCOHOL (ETHANOL) < 0.003 % (0.000-0.010); GLOMERULAR FILTRATION RATE > 60.0 (>60); GLUCOSE, FASTING 88 MG/DL (70-100); METHADONE URINE NEGATIVE (NEGATIVE); OPIATES URINE NEGATIVE (NEGATIVE); PHENCYCLIDINE URINE NEGATIVE (NEGATIVE); POTASSIUM SERUM 3.7 MEQ/L (3.5-5.1); SALICYLATE LEVEL < 1.7 MG/DL (5.0-30.0); SODIUM LEVEL 137 MEQ/L (136-145); TOTAL PROTEIN 7.2 GM/DL (6.4-8.2)
[2019-07-20] MEDS ORDERED: HALO5TA PO (18:36)
[2019-07-20 21:19] VITALS: BP 124/70
== END 2019-07-20 21:26 | disposition home or self-care (01) ==
LOC: M ED 16:21
DX: F23 Brief psychotic disorder (principal); F60.0 Paranoid personality disorder; Z65.3 Problems related to other legal circumstances; F99 Mental disorder, not otherwise specified; F17.200 Nicotine dependence, unspecified, uncomplicated
CPT/HCPCS: 36415; 80048; 80076; 80307; 84443; 85027; 99283; G0480

== ENCOUNTER 2019-07-22 04:08 | Inpatient (IN) | payer SELFPAY ==
[~2019-07-22] VITALS: Ht 195.6 cm; Wt 58.6 kg
[~2019-07-22 04:08] MED LIST: HALO5TA PO
[2019-07-22 05:49] LABS: ACETAMINOPHEN LEVEL < 2.0 UG/ML (10.0-30.0); ETHYL ALCOHOL (ETHANOL) < 0.003 % (0.000-0.010); SALICYLATE LEVEL < 1.7 MG/DL (5.0-30.0)
[2019-07-22 05:58] LABS: AMPHETAMINES LEVEL URINE POSITIVE (NEGATIVE); BARBITURATES URINE NEGATIVE (NEGATIVE); BENZODIAZEPINES URINE NEGATIVE (NEGATIVE); CANNABINOIDS URINE POSITIVE (NEGATIVE); COCAINE METABOLITE URINE NEGATIVE (NEGATIVE); METHADONE URINE NEGATIVE (NEGATIVE); OPIATES URINE NEGATIVE (NEGATIVE); PHENCYCLIDINE URINE NEGATIVE (NEGATIVE)
[2019-07-22] MEDS: NICOTINE 21MG/24HR 1 EA TRANSDERMAL TD SCH (09:00)
[2019-07-22 10:03] LABS: HEMATOCRIT 47.5 % (42.0-52.0); HEMOGLOBIN 15.9 g/dl (13.5-17.5); MEAN CORPUSCULAR HEMOGLOBIN 29.8 pg (27.0-33.0); MEAN CORPUSCULAR HGB CONC 33.5 g/dl (32.0-36.5); MEAN CORPUSCULAR VOLUME 89.1 fl (80.0-96.0); PLATELET COUNT, AUTOMATED 248 10^3/uL (150-450); RED BLOOD COUNT 5.33 10^6/uL (4.30-6.10); WHITE BLOOD COUNT 6.9 10^3/uL (4.0-10.0)
[2019-07-22 10:18] LABS: ALBUMIN 4.2 GM/DL (3.2-5.2); ALT/SGPT 24 U/L (12-78); BILIRUBIN,DIRECT 0.2 MG/DL (0.0-0.2); BLOOD UREA NITROGEN 17 MG/DL (7-18); CALCIUM LEVEL 9.7 MG/DL (8.5-10.1); CARBON DIOXIDE LEVEL 25 MEQ/L (21-32); CHLORIDE LEVEL 107 MEQ/L (98-107); CREATININE FOR GFR 1.21 MG/DL (0.70-1.30); GLOMERULAR FILTRATION RATE > 60.0 (>60); GLUCOSE, FASTING 81 MG/DL (70-100); SODIUM LEVEL 142 MEQ/L (136-145); TOTAL PROTEIN 7.5 GM/DL (6.4-8.2)
[2019-07-22] MEDS ORDERED: MOM 30ML SUSPENSION UDC PO PRN (12:30)
[2019-07-22] MEDS ORDERED: MAALOX 30 ML SUSP *UDC PO PRN (12:30)
[2019-07-22] MEDS ORDERED: OLANZapine ORAL DISINTEGRATING TAB 5MG PO PRN (12:30)
--- NOTE | 2019-07-22 15:45 | HPEPDOC ---
General Date of Admission July 22, 2019 at 12:24 Date of Service: July 22, 2019 Chief Complaint The patient is a 23-year-old male admitted with a reason for visit of Psychosis. Source: Patient Exam Limitations: No limitations Timing/Duration: Other (not applicable) Severity: Other (not applicable) Associated Symptoms: Other (. Paranoid delusions) History of Present Illness This is a 22 years old male who uses methamphetamine as recreational drug history of paranoid delusion in the past. Again, presented to ED with chief complaints of a paranoid delusions, patient denies suicidal ideation or homicidal ideation. Patient declines any medical complaints such as chest pain, shortness of breath, nausea, vomiting, diarrhea, etc. Home Medications No Active Prescriptions or Reported Meds Allergies Coded Allergies: No Known Allergies (Unverified , 09/16/16) Past Medical History Medical History None Surgical History Hardware at the broken jaw Family History Family history reviewed. No history of diabetes, cancer Social History * Smoker: current smoker Alcohol: Denies Drugs: other (, amphetamine, marijuana and headache. She) A-FIB/CHADSVASC A-FIB History Current/History of A-Fib/PAF?: No Review of Systems Constitutional: Denies: Chills, Fever, Malaise, Night Sweats, Weakness, Fatig ue, Weight Loss, Lethargy, Other Eyes: Denies: Pain, Vision change, Conjunctivae inflammation, Eyelid inflammation, Redness, Other ENT: Denies: Head Aches, Ear Pain, Dysphagia, Sinus Congestion, Post Nasal Drip, Sore Throat, Epistaxis, Other Symptoms Skin: Denies: Rash, Lesions, Jaundice, Bruising, Itching, Dry, Breakdown, Nail Changes, Other Pulmonary: Denies: Dyspnea, Cough, Pleuritic Chest Pain, Other Symptoms Cardiovascular: Denies: Chest Pain, Palpitations, Orthopnea, Paroxysmal Noc. Dyspnea, Edema, Lt Headedness, Other Symptoms Gastrointestinal: Denies: Nausea, Vomiting, Abdominal Pain, Diarrhea, Constipation, Melena, Hematochezia, Other Symptoms Genitourinary: Denies: Dysuria, Frequency, Incontinence, Hematuria, Retention, Other Symptoms Hematologic: Denies: Bruising, Bleeding Excessively, Petecchia, Purpura, Enlarged Lymph Nodes, Other Hematologic Endocrine: Denies: Polydipsia, Polyphagia, Polyuria, Heat Intolerance, Cold Intolerance, Other Endocrine Sx Musculoskeletal: Denies: Neck Pain, Back Pain, Shoulder Pain, Arm Pain, Hand Pain, Leg Pain, Foot Pain, Joint Pain, Muscle Pain, Spasms, Other Symptoms Neurological: Denies: Weakness, Numbness, Incoordination, Change in speech, Confusion, Seizures, Other Symptoms Psych: Reports: Other Psych (denied delusions) Physical Examination General Exam: Positive: Alert, Cooperative Eye Exam: Positive: PERRLA, Conjunctiva & lids normal ENT Exam: Positive: Atraumatic, Mucous membr. moist/pink Neck Exam: Positive: Supple Chest Exam: Positive: Clear to auscultation, Normal air movement Heart Exam: Positive: Rate Normal, Normal S1, Normal S2 Abdomen Exam: Positive: Normal bowel sounds, Soft Extremity Exam: Positive: Normal pulses Skin Exam: Positive: Nl turgor and temperature Neuro Exam: Positive: Strength at 5/5 X4 ext, Sensation Intact, Cranial Nerves 3-12 NL Psych Exam: Positive: Anxiety, Oriented x 3 Vital Signs Vital Signs Date Time Temp Pulse Resp B/P (MAP) Pulse Ox O2 Delivery O2 Flow Rate FiO2 07/22/19 13:59 98.2 89 18 131/69 (89) 100 Room Air Laboratory Data Labs 24H Laboratory Tests 2 07/22/19 04:41: Urine Opiates Screen NEGATIVE, Urine Methadone Screen NEGATIVE, Urine Barbiturates Screen NEGATIVE, Urine Phencyclidine Screen NEGATIVE, Urine Amphetamines Screen POSITIVEH, Urine Benzodiazepines Screen NEGATIVE, Urine Cocaine Metabolite Screen NEGATIVE, Urine Cannabinoids Screen POSITIVEH 07/22/19 05:08: Nucleated Red Blood Cells % (auto) 0.0, Anion Gap 10, Glomerular Filtration Rate > 60.0, Calcium Level 9.7, Total Bilirubin 1.0, Direct Bilirubin 0.2, Aspartate Amino Transf (AST/SGOT) 18, Alanine Aminotransferase (ALT/SGPT) 24, Alkaline Phosphatase 72, Total Protein 7.5, Albumin 4.2, Albumin/Globulin Ratio 1.27, Thyroid Stimulating Hormone (TSH) 1.270, Salicylates Level < 1.7L, Acetaminophen Level < 2.0L, Ethyl Alcohol Level < 0.003 CBC/BMP Laboratory Tests 07/22/19 05:08 Problems (1) Paranoid states (delusional disorders) Status: Acute Problem Text: Patient was admitted to inpatient mental health unit with the diagnosis of paranoid delusions, pt does not have any suicidal or homicidal ideas or plans Patient admitted to inpatient mental health unit for further psychiatric care Individual and group counseling, as per psychiatry Formal surgical intervention as per psychiatry Medical issues at the present time. Please call back as needed (2) Schizophrenia Status: Chronic Problem Text: Medication intervention as per psychiatry Plan / VTE VTE Prophylaxis Ordered?: Yes Plan Anticipated Discharge: ANDREI WANG MD July 22, 2019 15:45
[2019-07-23] VITALS (10 sets, daily range): BP systolic 88–102; BP diastolic 53–67
[2019-07-23] MEDS ORDERED: LORazepam 2 MG/ML VIAL (J2060) IM STA (07:54)
[2019-07-23] MEDS ORDERED: HALOPERIDOL 5MG/ML VIAL (J1630 PER 1) IM STA (07:54)
[2019-07-23] MEDS ORDERED: INFLUENZA QUADRIVALENT PF VACCINE 0.5ML SYRINGE (90686) IM ONE (09:00)
[2019-07-23] MEDS: NICOTINE 21MG/24HR 1 EA TRANSDERMAL TD SCH (09:00)
[2019-07-24 05:56] VITALS: BP 125/61
[2019-07-24] MEDS: NICOTINE 21MG/24HR 1 EA TRANSDERMAL TD SCH (09:00)
[2019-07-24] MEDS: ACETAMINOPHEN TAB 650MG DOSE (2X325MG) PO PRN ×2 (13:58→14:04)
[2019-07-24 16:24] VITALS: BP 120/73
[2019-07-24] MEDS: ARIPiprazole 2 MG TAB PO SCH (21:17)
[2019-07-24] MEDS: traZODone 50 MG TAB PO PRN (21:17)
[2019-07-25 06:21] VITALS: BP 117/71
--- NOTE | 2019-07-25 08:47 | MHHPE ---
DATE OF ADMISSION: 07/22/2019 He was admitted to the inpatient psychiatry unit and attempts, in fact several attempts, have been made to look at interviewing the patient, he has been sedated for the better part of the day, as he had been given medicine to help with agitation earlier on, and he wanted to leave the inpatient unit. In fact, has attempted to look at forcing his way out of it. I am not able to interview him, so the information for the summary is essentially obtained from the emergency room notes. He is [id number], had come to the hospital the previous night as well, and was not answering questions, when seen in triage and was not forming full sentences and indicated somehow that he was paranoid and was asking what was thought to be random questions, and that he had something to say, but he was afraid that if he said that, the staff there would kill him. According to the ER note, he came and said he believed that there was a serial killer who he had seen on television and that he alluded that the killer had been communicating with him through the television. He felt he and his family were in danger, he repeatedly asked for reassurances, and that he felt there were aliens around, and was worried that in fact the staff were aliens. He had been to the emergency room with what was thought be mild paranoid and delusions, and would return home after some reassurance. When seen yesterday in the ER, he was quite concerned that staff were aliens and wanted them to tell him if they were going to kill him, and to just say so. At one point was not sure whether he had made the right decision to come to the emergency room. He also indicated that he had apparently figured out COVID. He was also seen to be increasingly disorganized in his thinking, in reference to connections to his brother and mother through the television and that his brother had told him that he had witnessed a murder. I am unaware if he has had any previous hospitalizations at psychiatry. I am currently unaware of any background history. He was seen by medicine, in the ER as well as the hospitalist on the unit. There is no significant past medical history. He has a history of drug use apparently, and had been using methamphetamines. Urine toxicology upon admission was positive for amphetamines and cannabinoids. I unable to perform a mental status exam, as I am told by the staff that the patient has been sleeping off and on, he had gotten up for his meals, was difficult to arouse. ASSESSMENT: Psychotic disorder, not otherwise specified. Consider an induced psychosis. He was agitated in the morning, was given anti-agitation medications, has been sedated for the better part of the day off and on today. PLAN: He is admitted to the inpatient psychiatry unit and placed on relevant precautions. We will look at obtaining collateral information, and give him anti-agitation medications as indicated. Will also get started on an atypical antipsychotic should it be warranted, and there is evidence that psychosis is not clearly drug induced. Further recommendations will be made depending on the clinical situation. Collateral information if possible would be useful.
[2019-07-25] MEDS: NICOTINE 21MG/24HR 1 EA TRANSDERMAL TD SCH (09:00)
--- NOTE | 2019-07-25 09:13 | MHIPNPDOC ---
[facility] Progress Note Progress Note Inpatient Progress Note Jonatan England MRN: N/A Date of : N/A Date of Service: 07/25/2019 History of Present Illness The patient, a 23-year-old man presents after using methamphetamine, but also being quite paranoid and accusatory, he is admitted out of abundance of caution. Interval History Patient was attempted to met with, however, he refuses to engage in any meaningful interview. He generally states that he does need to be here, but is wholly on amenable to discussing any of the events that brought him in. He generally gets upset whenever this has brought up and states that he would become agitated if further questions are asked and subsequently becomes annoyed and leaves the room. He has had difficulty over the weekend threatening staff that if he is not allowed to leave that he will hurt individuals. Review Of Systems Unable to obtain due to mental status. Psychotherapy None on this visit. Vital Signs Reviewed. Mental Status Examination General: Well dressed with fair hygiene Speech: Spontaneous and fluid Thought processes: Guarded. MSK: Smooth and coordinated gait, no signs of tremors or involuntary orofacial movements Thought content: Guarded Abstract reasoning, and computation: Intact Description of associations: Impaired Description of abnormal or psychotic thoughts: Unknown. Judgment: Impaired Insight: Impaired Orientation: Alert and orientated 3 Cognition: Grossly normal Recent and remote memory: Intact Attention span and concentration: Intact Fund of knowledge: Adequate Mood: "I am done with this" Affect: Irritable Diagnoses Unspecified psychiatric disorder. Methamphetamine use disorder, severe. Assessment and Plan Unspecified psychotic disorder: We will continue to offer current medication regiment as patient appears to be taking it; however, it is unclear whether he will make any progress. Methamphetamine use disorder: Recommend to outpatient rehab floor once discharged. Disposition Patient will likely need further observation. He is still too unstable in order to engage in a meaningful interviewed to understand his current thought process or as to whether he has any antisocial characteristics that are presenting themselves versus psychotic ones. Time Spent 15 minutes. Thursday Vital Signs Vital Signs Date Time Temp Pulse Resp B/P (MAP) Pulse Ox O2 Delivery O2 Flow Rate FiO2 07/25/19 06:21 98.3 78 12 117/71 (86) 98 Room Air Current Medications Current Medications Medications (Trade) Dose Ordered Sig/Fani Route PRN Reason Start Time Stop Time Status Last Admin Dose Admin Acetaminophen (Tylenol Tab) 650 mg Q6HP PRN PO HEADACHE or DISCOMFORT 07/22/19 12:30 Al Hydrox/Mg Hydrox/Simethicone (Mylanta) 30 ml Q4HP PRN PO HEARTBURN/INDIGESTION 07/22/19 12:30 Aripiprazole (AbiLIFY) 2 mg QHS PO 07/24/19 21:00 07/24/19 21:17 Haloperidol (Haldol) 5 mg STAT STAT IM 07/23/19 07:54 07/23/19 07:56 DC 07/23/19 08:08 Home Med (Med Rec Complete!) ASDIRECTED XX 07/22/19 12:00 07/22/19 12:02 DC Lorazepam (Ativan) 2 mg STAT STAT IM 07/23/19 07:54 07/23/19 07:56 DC 07/23/19 08:08 Magnesium Hydroxide (Milk Of Magnesia) 30 ml DAILYPRN PRN PO CONSTIPATION 07/22/19 12:30 Nicotine (Nicoderm Cq 21mg) 1 patch DAILY TD 07/22/19 09:00 Olanzapine (ZyPREXA ZYDIS) 5 mg Q4HP PRN PO AGITATION 07/22/19 12:30 Trazodone HCl (Desyrel) 50 mg QHSP PRN PO INSOMNIA 07/22/19 12:30 07/24/19 21:17 Allergies Coded Allergies: No Known Allergies (Unverified , 09/16/16) ALPHONSO MUÑOZ DO July 25, 2019 09:13
[2019-07-25 15:37] VITALS: BP 115/74
[2019-07-25] MEDS: ARIPiprazole 2 MG TAB PO SCH (21:49)
[2019-07-25] MEDS: traZODone 50 MG TAB PO PRN (22:58)
[2019-07-26 06:12] VITALS: BP 114/57
[2019-07-26] MEDS: NICOTINE 21MG/24HR 1 EA TRANSDERMAL TD SCH (09:00)
--- NOTE | 2019-07-26 09:45 | MHDSPDOC ---
[facility] Discharge Summary Discharge Summary DATE OF ADMISSION: July 22, 2019 at 12:24 DATE OF DISCHARGE: 07/26/19 Discharge Jonatan England MRN: N/A Date of : N/A Date of Service: 07/26/2019 Diagnoses Unspecified psychiatric disorder. Methamphetamine use disorder, severe. History of Present Illness The patient, a 23-year-old man presents after using methamphetamine, but also being quite paranoid and accusatory, he is admitted out of abundance of caution. Consultants Involved Hospitalist/PCP screening Treatment and Progress On The Unit The patient is admitted to the inpatient mental health unit. He is primarily treated supportively of which his paranoia does appear to resolve. He does have difficulty trusting the provider initially. However, after another day of observation the patient did better and had initially been upset and threatened to hurt staff if he is not released. After redirection he reported that he was simply upset and became much more polite and amenable for well over 24 hours before being discharged. He was able to explain his rationale that he had been using prior and had felt quite paranoid now resolved. He had been doing well and had requested to leave. Discharge Assessment 23-year-old man with likely substance induced psychosis presents after using. He has a protracted course but resolves with only supportive treatment as would be expected in substance-induced problems. The patient at the time of discharge did not meet criteria for involuntary admission/extension due to having a normal mental status exam, fair insight into the situation, They are engaged in the discharge process, as well as being friendly and amenable in behavioral control and havent been engaging in any observed concerning behavior or ideation recently. They decline voluntary extension/admission at this time and must be discharged in good dharmesh, as Im unable to make a case for holding the patient against their will. They may have historical risk factors of admissions and other interactions with psychiatry however, those are not modifiable from a clinical perspective. The patient will need to be discharged in good dharmesh. Mental Status Examination General: Well dressed with good hygiene Speech: Spontaneous and fluid Thought processes: Linear and logical MSK: Smooth and coordinated gait, no signs of tremors or involuntary orofacial movements Thought content: Future orientated Abstract reasoning, and computation: Intact Description of associations: Intact Description of abnormal or psychotic thoughts: Denies any suicidal or homicidal ideation. Denies any auditory or visual hallucinations. Does not appear to be responding to internal stimuli. Does not appear to be endorsing any bizarre or paranoid ideation. Judgment: fair Insight: fair Orientation: Alert and orientated 3 Cognition: Grossly normal Recent and remote memory: Intact Attention span and concentration: Intact Fund of knowledge: Adequate Mood: "okay" Affect: Euthymic with a full range Follow Up The social work team worked during the predischarge meeting in order to evaluate for further issues of lethality address them fully before discharge. They worked on safety planning with the patient's family members in order to ensure that the patient will have a safe and effective discharge. Time Spent The amount of time spent in the coordination of care for this patient was approximately 45 minutes. Thursday Vital Signs/I&Os Vital Signs Date Time Temp Pulse Resp B/P (MAP) Pulse Ox O2 Delivery O2 Flow Rate FiO2 07/26/19 06:12 98.1 73 14 114/57 (76) 99 Room Air Medications Scheduled Nicotine (Nicotine Patch) 21 Mg Patch.td24, 1 PATCH TD DAILY for tobacco for 30 Days, #30 Allergies Coded Allergies: No Known Allergies (Unverified , 09/16/16) ALPHONSO MUÑOZ DO July 26, 2019 09:45
[2019-07-26] MEDS ORDERED: NICO21PAT TD (10:30)
--- NOTE | 2019-07-26 15:20 | MHIPN ---
DATE: 07/24/2019 VITAL SIGNS: Blood pressure 125/61, pulse 58, temperature 98.6. This is a telemedicine video assessment. The patient is seen in the presence of staff. CHIEF COMPLAINT: Says feels okay. SUBJECTIVE: The patient is [id number], had come in a couple of days ago, has been psychotic, deluded, attempted to leave the hospital, the unit, attempted that again this morning, and has been paranoid. Says feels okay but does not elaborate on it, and it seems he finds it hard to do so. Says mood is good, but that he has never been held in this manner. He wondered if I knew about things, and was somewhat vague on this. Had indicated had seen me elsewhere, on media as well, and again vague, would not answer questions asked. Says has family around, was vague on that as well. When other straightforward inquiries were made, he wanted to know why he has been asked these questions, or that the explanation, do not satisfy him. MENTAL STATUS EXAMINATION: Somewhat unkempt, is lying in bed. He is guarded. Currently no agitation. No psychomotor retardation. Affect is restricted in range. Possibly internally preoccupied, has delusions, possibly persecution, others following him, though he would not elaborate on that. No fluctuation of consciousness. He is alert. He oriented to time, place, and person. Intellect is thought to be average. Judgment, insight are compromised. ASSESSMENT: Psychotic disorder, not otherwise specified (other schizophrenia spectrum and related disorders). 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 (Urine toxicology was positive for cannabinoids as well as amphetamines). PLAN: Continue current observation. He has been admitted to the inpatient psychiatry unit. He had attempted leaving today as well, but was directable by staff. He has declined using anti-agitation medications for the most part. Will continue offering them to him, and I would suggest that he is also started on an atypical antipsychotic on a steady basis should symptoms of psychosis persist. We will attempt at obtaining collateral information as well, and has given us verbal permission to speak with his mother. Again, if the psychosis is substance-induced, then it is preferable that he not be given any scheduled an atypical antipsychotic at this point. Further recommendations will be made when he is seen by the assigned psychiatrist tomorrow.
== END 2019-07-26 14:15 | disposition home or self-care (01) | DRG 751 ==
LOC: M ED 04:08 → M ED INP 12:24 → M PSY 14:05
PROVIDERS: ADMIT Psychiatry & Neurology Addiction Medicine; ATTEND Psychiatry & Neurology Addiction Medicine
DX: F29 Unspecified psychosis not due to a substance or known physiological condition (principal); F15.259 Other stimulant dependence with stimulant-induced psychotic disorder, unspecified; F17.200 Nicotine dependence, unspecified, uncomplicated

== ENCOUNTER 2019-08-11 20:39 | Emergency (ER) | payer SELFPAY ==
[~2019-08-11 20:39] MED LIST changes: +NICO21PAT TD
[2019-08-11 20:40] VITALS: BP 137/100
== END 2019-08-11 21:36 | disposition left against medical advice (07) ==
LOC: M ED 20:39
DX: Z53.21 Procedure and treatment not carried out due to patient leaving prior to being seen by health care provider (principal)

== ENCOUNTER 2019-08-15 00:40 | Emergency (ER) | payer SELFPAY ==
[~2019-08-15] VITALS: Ht 193 cm; Wt 58.6 kg
[2019-08-15 00:41] VITALS: BP 132/86
== END 2019-08-15 01:18 | disposition left against medical advice (07) ==
LOC: M ED 00:40
DX: Z53.21 Procedure and treatment not carried out due to patient leaving prior to being seen by health care provider (principal)

== ENCOUNTER 2019-08-16 21:25 | Observation (INO) | payer SELFPAY ==
[~2019-08-16] VITALS: Ht 193 cm; Wt 59.6 kg
[2019-08-16] MEDS: ENOXAPARIN 40MG/0.4ML SYRINGE (J1650 PER 10MG) SC SCH (01:00)
[2019-08-16] MEDS ORDERED: GLUCOSE 4GM CHEW TABLET PO PRN (21:45)
[2019-08-16] MEDS ORDERED: GLUCAGON INJ 1MG VIAL SC PRN (21:45)
[2019-08-16] MEDS ORDERED: DEXTROSE 50% 50 ML SYRINGE IV PRN (21:45)
[2019-08-16] MEDS ORDERED: NS 1,000 ML IV ONE (21:45)
[2019-08-16 21:50] VITALS: BP 70/48
[2019-08-16 22:30] VITALS: BP 100/62
[2019-08-16 22:50] LABS: HEMOGLOBIN 14.9 g/dl (13.5-17.5); MEAN CORPUSCULAR HGB CONC 33.9 g/dl (32.0-36.5); MEAN CORPUSCULAR VOLUME 88.7 fl (80.0-96.0); RED BLOOD COUNT 4.96 10^6/uL (4.30-6.10)
--- NOTE | 2019-08-16 22:51 | HPEPDOC ---
[facility] Medical History & Physical Date of Admission August 16, 2019 Date of Service: August 16, 2019 Attending Physician: ANDREI PARKER MD History and Physical CHIEF COMPLAINT: weakness, bradycardia HISTORY OF PRESENT ILLNESS: Jonatan England is a 23-year-old male who was admitted to the hospital as a direct admit from the inpatient mental health unit after a rapid assessment team code was called. In the [facility], the patient was found to be hypotensive with blood pressures in the 70s over 40s manually and heart rate in the 50s. An EKG was obtained which showed sinus bradycardia. A fingerstick blood glucose showed hypoglycemia at 75 MG/DL. Nurses noted that the patient had received 50mg trazadone and 5 mg zyprexa this evening. The patient appeared fatigued and tremulous, but was responsive to vocal commands. He was moved onto a stretcher for transport to the PCU for admission. In the hallway in [facility], he jumped up off the stretcher and ran toward the open door. The door was closed and the patient stopped and leaned against a wall, breathing heavily and appearing like he would follow over. He was moved back onto the stretcher and security was called in order to be escorted to PCU. On admission in PCU, the patient appeared more alert and stated he felt afraid. He answers questions intermittently and would not answer orientation questions such as name, place, and time, nor would he answer questions about his medical history. In the emergency department earlier today, his urine drug screen was positive for amphetamines and ethyl alcohol level of 0.039%. PAST MEDICAL HISTORY: Unable to obtain from patient PAST SURGICAL HISTORY: Unable to obtain from patient SOCIAL HISTORY: Unable to obtain from patient, known recent use of alcohol and amphetamines based on ED visit 08/16/19 FAMILY HISTORY: Unable to obtain from patient ALLERGIES: Please see below. REVIEW OF SYSTEMS: Unable to obtain from patient HOME MEDICATIONS: Please see below. PHYSICAL EXAMINATION: VITAL SIGNS: See below GENERAL: Appears tremulous lying in bed, answers some questions appropriately but does not respond to some questions HEENT: Normocephalic, atraumatic, PERRLA, EOMI, sclera anicteric, conjunctiva pink, moist mucous membranes NECK: Supple, trachea midline, no lymphadenopathy, no JVD CARDIOVASCULAR: Regular rate and rhythm, normal S1 and S2. No murmurs, rubs, or gallops RESPIRATORY: Clear to auscultation bilaterally with equal air entry bilaterally. No wheezing, rhonchi, or rales. ABDOMEN: Soft, nontender, nondistended, bowel sounds present. EXTREMITIES: No cyanosis or edema. Pulses 2+/4 in bilateral upper and lower extremities SKIN: [place], warm, dry NEUROLOGIC: Alert, unable to determine orientation. No focal deficits appreciated. Follows commands appropriately. PSYCHIATRIC: Flat affect LABORATORY DATA: See below. MICROBIOLOGY: Please see below. ASSESSMENT: 23-year-old male with known recent amphetamine use, admitted from the inpatient mental health unit to the hospital for hypotension and bradycardia PLAN: 1. Hypotension secondary to medication side effect versus dehydration. Status post 1 L normal saline bolus. Continue IV fluids at 150ml/hr. Check CBC for anemia, check BMP for electrolyte abnormalities 2. Sinus bradycardia secondary to medication side effect versus unclear cause - monitor on telemetry. Check cardiac marker panel. - hx of sinus bradycardia in 2015 on EKG with positive UDS for amphetamines and cannabis at that time 3. Hypoglycemia. IV fluids with D5w/NS, FSBS is every 6 hours, hypoglycemia protocol. Can switch fluids to normal saline when hypoglycemia resolves 4. Substance induced psychosis Recent admission to [facility] with psychosis after using amphetamines and alcohol. Suicide precautions, sitter, expect discharge back to [facility] once stable. DVT prophylaxis: Subcutaneous Lovenox. Disposition: Admitted for observation to PCU, pending clinical improvement, expect discharge back to [facility] once stabilized Home Medications No Active Prescriptions or Reported Meds Allergies Coded Allergies: No Known Allergies (Unverified , 09/16/16) ROOSEVELT MCGOVERN D.O. August 16, 2019 21:56
[2019-08-16] MEDS: D5W/0.45% SODIUM CHLORIDE 1,000 ML IV SCH (22:53)
[2019-08-16 23:09] LABS: ALBUMIN 3.4 GM/DL (3.2-5.2); ALT/SGPT 15 U/L (12-78); BILIRUBIN,TOTAL 0.8 MG/DL (0.2-1.0); BLOOD UREA NITROGEN 12 MG/DL (7-18); CALCIUM LEVEL 8.9 MG/DL (8.5-10.1); CARBON DIOXIDE LEVEL 25 MEQ/L (21-32); CHLORIDE LEVEL 107 MEQ/L (98-107); CK-MB VALUE MASS < 1.0 NG/ML (<3.6); CPK CREATINE PHOSPHOKINASE 103 U/L (39-308); CREATININE FOR GFR 1.09 MG/DL (0.70-1.30); GLOMERULAR FILTRATION RATE > 60.0 (>60); GLUCOSE, FASTING 76 MG/DL (70-100); MAGNESIUM LEVEL 2.1 MG/DL (1.8-2.4); MB/CK RELATIVE INDEX 0.97 (< OR =4); POTASSIUM SERUM 3.9 MEQ/L (3.5-5.1); SODIUM LEVEL 141 MEQ/L (136-145); TOTAL PROTEIN 6.6 GM/DL (6.4-8.2); TROPONIN I < 0.02 NG/ML (< 0.10)
[2019-08-17] VITALS (8 sets, daily range): BP systolic 100–118; BP diastolic 59–70
[2019-08-17] MEDS: D5W/0.45% SODIUM CHLORIDE 1,000 ML IV SCH (04:25)
[2019-08-17] MEDS ORDERED: ACETAMINOPHEN TAB 650MG DOSE (2X325MG) PO PRN (04:45)
[2019-08-17] MEDS ORDERED: LORazepam 2 MG TAB PO PRN (10:30)
[2019-08-17] MEDS ORDERED: SLF 3 ML SYR IV PRN (11:15)
[2019-08-17] MEDS: THIAMINE 100 MG TAB PO SCH ×2 (12:00→20:13)
[2019-08-17] MEDS: MULTIVITAMINS/MINERALS THERAP 1 TAB PO SCH (12:00)
[2019-08-17] MEDS: FOLIC ACID 1 MG TAB PO SCH (12:00)
[2019-08-17] MEDS: SLF 3 ML SYR IV SCH ×2 (14:00→20:16)
[2019-08-17] MEDS: ENOXAPARIN 40MG/0.4ML SYRINGE (J1650 PER 10MG) SC SCH (20:14)
--- NOTE | 2019-08-17 21:23 | IPNPDOC ---
Date Seen The patient was seen on 08/17/19. Progress Note SUBJECTIVE: Jonatan was seen and examined this morning by the hospital service while sleeping in bed. He was extremely somnolent and repeatedly needed to be spoken to in a loud volume or sternal rubbed in order to have him focus on our questions. He is able to respond that he is in no pain, but struggles to consistently answer questions appropriately. He has a sitter actively monitoring him. However, towards the end of our visit, he expressed interest in eating and actually began to eat as we left. Background: Jonatan is a 23-year-old -[place] man who was directly admitted over on 08/16/19 from the inpatient mental health unit for hypotension (systolic blood pressures in the 70s) with bradycardic rate as well as a near-syncope episode. OBJECTIVE PHYSICAL EXAMINATION: VITAL SIGNS: Please see below. GENERAL: Young, thin -[place] male. Very somnolent and struggles to consistently reply properly to questions and commands. He is unable to answer properly to orientation to place, person or time. HEENT: Normocephalic, atraumatic. Noninjected, anicteric sclera. He struggles to keep his eyes open and therefore, made it difficult to assess for pupillary response to light and accommodation. No pharyngeal erythema or exudate. CARDIOVASCULAR: Bradycardic. Manually palpated. Heart rate of 5960 bpm. Regular rhythm. +S1, S2 RESPIRATORY: Diminished breath sounds, likely the result of somnolence, but no wheezes, crackles or rhonchi appreciated. Breathing room air. ABDOMINAL: Soft, thin, nondistended. Difficult to properly assess for tenderness as patient is very somnolent. Normoactive bowel sounds throughout. MUSCULOSKELETAL: 5 out of 5 muscle strength testing, UE and LE b/l EXTREMITIES: 2+ radial and posterior tibial pulses bilaterally. Lower extremities are free of edema. NEUROLOGICAL: Extremely somnolent, struggling to consistently maintain eye contact and responds appropriately to questions and commands. Required multiple sternal rubs and loud volume questions to yield any response PSYCHOLOGICAL: Difficult to accurately assess for mood and affect is patient is significantly somnolent LABORATORY DATA, IMAGING STUDIES, MICROBIOLOGY: Please see below. DVT prophylaxis ordered?: cain Lovenox ASSESSMENT AND PLAN: This is 23yo -[place] male who was directly admitted from inpatient mental health on 08/15 due to hypotension and bradycardia with near syncope. He had been admitted to [facility] with presumed likely methamphetamine abuse/withdrawal. #Hypotension with bradycardia and near syncope likely 2/2 combination of medication side effect with withdrawal from methamphetamine use and dehydration -Received evening trazodone and Zyprexa on 08/15 and maybe contributed to low pressure/heart rate -Likely contribution from expected response of going through methamphetamine withdrawal -Patient received 1 L MS bolus and continued subsequently on IV fluids (D5W/MS at 150 mL/hour) -His mean arterial pressures today, stated 70 or above with systolic pressures consistently remaining 100 or above; he continues to be bradycardic -Patient began to eat and this morning and fluids were subsequently stopped #Sinus bradycardia, likely secondary to methamphetamine withdrawal -Manual palpated pulse of 5960 bpm on exam this morning -Likely secondary to expected withdrawal process from methamphetamines -Due to somnolence on exam today, patient started on CIWA protocol -Continue with telemetry #Substance induced psychosis -Was admitted to inpatient mental health with psychosis after methamphetamine use -Continue with sitter -Should patient's baseline mentation and alertness improve, with accompanying consistently adequate pressures, he will be discharged back to inpatient mental health #DVT prophylaxis: SC Lovenox Disposition: Pending improved baseline mentation with ability to consistently maintain adequate pressures. Once these objectives are achieved, likely discharged back to inpatient mental health unit. Attending attestation: I evaluated and examined the patient in person; I discussed the care with Resident in detail and agree with the plan above. VS, I&O, 24H, Fishbone Vital Signs/I&O Vital Signs Date Time Temp Pulse Resp B/P (MAP) Pulse Ox O2 Delivery O2 Flow Rate FiO2 08/17/19 16:00 97.9 56 18 106/61 (76) 100 Room Air I&O- Last 24 Hours up to 6 AM 08/17/19 06:00 Intake Total 2050 ml Balance 2050 ml Laboratory Data 24H LABS Laboratory Tests 2 08/16/19 22:38: Nucleated Red Blood Cells % (auto) 0.0, Anion Gap 9, Glomerular Filtration Rate > 60.0, Calcium Level 8.9, Phosphorus Level 4.0, Magnesium Level 2.1, Total Bilirubin 0.8, Aspartate Amino Transf (AST/SGOT) 11, Alanine Aminotransferase (ALT/SGPT) 15, Alkaline Phosphatase 59, Total Creatine Kinase 103, Creatine Kinase MB < 1.0, Creatine Kinase MB Relative Index 0.97, Troponin I < 0.02, Total Protein 6.6, Albumin 3.4, Albumin/Globulin Ratio 1.1 08/17/19 01:45: Bedside Glucose (Misc Panel) 89 08/17/19 06:23: Bedside Glucose (Misc Panel) 96 CBC/BMP Laboratory Tests 08/16/19 22:38 JANNETTE HUGHES D.O. August 17, 2019 21:23 VAHID MATHEW MD Aug 24, 2019 20:34
--- NOTE | 2019-08-17 21:54 | ECGEPIP ---
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
[2019-08-18] VITALS: BP 103/60
[2019-08-18 04:00] VITALS: BP 95/56
[2019-08-18] MEDS: SLF 3 ML SYR IV SCH ×3 (06:14→19:41)
[2019-08-18 07:53] VITALS: BP 103/51
[2019-08-18] MEDS: MULTIVITAMINS/MINERALS THERAP 1 TAB PO SCH ×2 (09:00→09:21)
[2019-08-18] MEDS: FOLIC ACID 1 MG TAB PO SCH ×2 (09:00→09:21)
[2019-08-18] MEDS: THIAMINE 100 MG TAB PO SCH ×3 (09:00→19:41)
[2019-08-18 12:00] VITALS: BP 100/60
[2019-08-18] MEDS: ENOXAPARIN 40MG/0.4ML SYRINGE (J1650 PER 10MG) SC SCH (19:41)
--- NOTE | 2019-08-24 19:18 | DS.PDOC ---
Discharge Summary General Date of Admission August 16, 2019 at 21:25 Date of Discharge July Attending Physician: VAHID MATHEW MD Specialist/Consultants Involve: Mouna Cade Discharge Summary PROCEDURES PERFORMED DURING STAY: None. ADMITTING DIAGNOSES: Hypotension secondary to medication side effect versus dehydration Sinus bradycardia secondary to medication side effect versus unclear cause Hypoglycemia Substance induced psychosis DISCHARGE DIAGNOSES: Substance induced psychosis COMPLICATIONS/CHIEF COMPLAINT: Sinus Bradycardia. HISTORY OF PRESENT ILLNESS & HOSPITAL COURSE: Jonatan is a 23yo -[place] male with known recent amphetamine use, who was admitted to the hospital directly from the inpatient mental health unit following a rapid assessment. While in the inpatient mental health unit, he was hypotensive with blood pressures in the 70s systolic over 40s diastolic manually, with accompanying measured heart rates in the 50s. An EKG showed sinus bradycardia and a fingerstick glucose reading was indicative of hypoglycemia (75) C's. He had received 5 mg of Zyprexa and 50 mg of trazodone earlier in the evening. While in the inpatient at the health unit. After this, he was tremulous and appeared fatigued, yet remained responsive to vocal commands. He was then transported on a stretcher to the progressive care unit to be [facility], but while in the hallway, he subsequently jumped off the stretcher and began to run toward an open door. The door. He was approaching closed and he then stopped and Levaquin against the wall, began to breathe heavily and appeared as if he would fall over. He was then moved back onto the stretcher and security now on board, escorted to the progressive care unit. Upon admission in the progressive care unit by the hospitalist night service, he seemed more alert and reported feeling afraid. He was only able to answer questions intermittently and would not answer any questions that would indicate he was oriented to his name, place, and time. He also denied any answer any questions related to his medical history. Prior to being admitted to the inpatient mental health unit earlier in the day, his urine drug screen in the emergency department was positive for amphetamines and an ethyl alcohol level of 0.039%. On his hospital day #2, the first day the day hospitalist service saw and evaluated him, he remained very lethargic and somnolent; needing to be spoken to very loud volume and the sternal he rubbed for him to begin trying to focus on questions. He did say that he was in no pain, but consistently struggled to answer questions appropriately. He had a sitter on board that stay without him through his inpatient stay. On 08/16. He indicated a desire to begin eating. On hospital day #3, he was fully alert and oriented and eating a full diet. He was asymptomatic, with adequate blood pressures and heart rates. It was at this time at the hospital service asked the psychiatry service to reevaluate the patient as to his ultimate disposition. The psychiatry service felt that he still was confused and paranoid and instructed that he be discharged from the medical service back to the inpatient mental health unit. DISCHARGE MEDICATIONS: Please see below. ALLERGIES: Please see below. PHYSICAL EXAMINATION ON DISCHARGE: VITAL SIGNS: Please see below. On hospital day #3, patient's final day on the medical inpatient side of the hospital, he refused to be fully examined by the hospitalist service. He indicated a lack of trust and wanted us to leave the room immediately. He was also very jaycob and disrespectful of the sitter. What could be obtained: General: Young, thin, -[place] male. Much more alert and oriented today versus yesterday, but refusing to answer any questions or commands. He was eating breakfast at the time of our evaluation, and was questioning if we put anything into his food. Seemingly very wary mood and distrustful of staph. HEENT: Normocephalic, atraumatic. Noninjected, anicteric sclera. Psychological: Very standoffish refused to be examined and refused to answer any questions. LABORATORY DATA: Please see below. IMAGING: None. PROGNOSIS: Good, provided he refrain from illegal drug use ACTIVITY: As tolerated DIET: As tolerated DISPOSITION: [facility]. DISCHARGE INSTRUCTIONS & ITEMS TO FOLLOWUP ON ON OUTPATIENT: -Discharged back to inpatient mental health after being seen by psychiatry service while a medical inpatient and being deemed still confused and paranoid -Specific discharge instructions from inpatient mental health will be articulated in subsequent discharge summary for that admission by the psychiatry service. Patient should follow these outlines as well. -Should patient feel the symptoms that necessitated his transfer over to the medical inpatient section of the hospital recur, and/or acutely worsen - - or should he experience an acute medical emergency of any kind - - he is to present to the emergency department as possible. DISCHARGE CONDITION: Stable TIME SPENT ON DISCHARGE: Greater than 35 minutes. Attending attestation: I evaluated and examined the patient in person; I discussed the care with Resident in detail and agree with the plan above. Vital Signs/I&Os Vital Signs Date Time Temp Pulse Resp B/P (MAP) Pulse Ox O2 Delivery O2 Flow Rate FiO2 08/18/19 12:00 97.6 62 18 100/60 (73) 100 Room Air Discharge Medications No Active Prescriptions or Reported Meds Allergies Coded Allergies: No Known Allergies (Unverified , 09/16/16) JANNETTE HUGHES D.O. Aug 24, 2019 19:18 VAHID MATHEW MD Aug 26, 2019 13:20
== END 2019-08-18 21:20 ==
LOC: INTOOBSV 21:25 → M PCU 21:25 → UNDOADMIN 21:40 → M PCU 21:40
PROVIDERS: ADMIT Internal Medicine; ATTEND Internal Medicine
DX: I95.89 Other hypotension (principal); R00.1 Bradycardia, unspecified; E16.2 Hypoglycemia, unspecified; R55 Syncope and collapse; F19.159 Other psychoactive substance abuse with psychoactive substance-induced psychotic disorder, unspecified; R53.83 Other fatigue

== ENCOUNTER 2019-08-18 19:20 | Inpatient (IN) | payer SELFPAY ==
[~2019-08-18] VITALS: Ht 193 cm; Wt 58.5 kg
[2019-08-18] MEDS ORDERED: MAALOX 30 ML SUSP *UDC PO PRN (19:30)
[2019-08-18] MEDS ORDERED: traZODone 50 MG TAB PO PRN (19:30)
[2019-08-18] MEDS ORDERED: ACETAMINOPHEN TAB 650MG DOSE (2X325MG) PO PRN (19:30)
[2019-08-18] MEDS ORDERED: MOM 30ML SUSPENSION UDC PO PRN (19:30)
[2019-08-18] MEDS ORDERED: OLANZapine ORAL DISINTEGRATING TAB 5MG PO SCH (21:00)
[2019-08-18 21:45] VITALS: BP 128/77
[2019-08-19 06:26] VITALS: BP 108/57
--- NOTE | 2019-08-19 09:16 | MHHPEPDOC ---
General Date Of Admission: August 18, 2019 Legal Status: 9.39 Chief Complaint "I'm fine now" History of Present Illness HISTORY OF THE PRESENT ILLNESS: Patient is a 23 -year-old , male, who presents to [facility] after being reportedly admitted by on-call provider to the unit after being admitted to medicine for cardiovascular problems. He was readmitted but reported no psychotic symptoms, reports he feels much improved and that he had been doing meth prior to coming in. He reports that he doesn't have any delusional thoughts as he had. He has been observed on the unit with no signs of psychotic processes or any concerning behavior or ideation. Psychiatric Review of Systems Depression (2 or more weeks): denies Sydnie (4 or more days of): denies Psychosis: denies PTSD: denies Anxiety: denies Past Psychiatric History Previous Psychiatric Diagnosis: Substance induced psychosis. Previous Psychiatric Admissions: Multiple, last several days prior . Suicide Attempts: none noted. Psychiatric Follow-up: none. Psychiatric medications: none. Past Medical History Medical Problems history of Hepatitis Family Medical/Psychiatric HX Medical Problems no changes Addiction History amphetamines, methamphetamines Social History Childhood: "fine" Abuse/Trauma:none noted Current Living Situation: lives with friends Education: appears to have HS Employment: employed . Social Support: mother. Legal: no current charges pending Marital: unmarried. Mental Status Examination General Appearance: well groomed Build: average Demeanor: average Eye Contact: average Activity: average Behavior: cooperative Speech: clear Mood: euthymic Mood "fine" Affect: full Thought Process: logical/linear Thought Content (Delusions): denies SI, HI, AVH Thought Content (Other): none reported Thought Content (Aggressive): none reported Perception (Hallucinations): none reported Perception (Other): none reported Cognition (Impairment of): none reported Cognition(Intelligence Est.): average Oriented: Awake, Alert Insight: fair (chronically limited) Judgment: Fair (chronically limited) Psychosis: Denies A-FIB/CHADSVASC A-FIB History Current/History of A-Fib/PAF?: No Assessment 23 year old man with a history of meth abuse, presents after going to the medical floor for low heart rate, it's unclear why he was readmitted as no consult note exists at time of this note, he appears to have a regular course w ith rapid resolution as is consistent with meth intoxication.He doesn't meet invol criteria in my opinion as he has no signs of psychosis or si/hi, or other behaviors that would demonstrate immediate danger to himself or others, he declines further vol admission will be d/c'ed in good dharmesh Problem List Problems: (1) Methamphetamine abuse Status: Chronic Response to Treatment: Stable Initial Treatment Plan 1. Patient was admitted on a [9.39] status. 2. Complete history was obtained. 3. With patients permission, family will be contacted and database will be expanded. 4. Patients medication regimen will be reviewed and changed accordingly. 5. Patient will be provided with protected environment. 6. Patient will be treated with individual, group, and milieu therapies. 7. Patient will receive supportive psych-education. 8. Discharge planning will commence immediately. 9. Outpatient follow-up treatment will be strongly recommended. 10. The initial treatment plan will focus initially on: * Substance ESTIMATED LENGTH OF STAY: 1 DAYS. TIME SPENT COUNSELING AND COORDINATING INITIAL CARE: 70 minutes with greater than 50% of time on c/c Vital Signs Vital Signs Date Time Temp Pulse Resp B/P (MAP) Pulse Ox O2 Delivery O2 Flow Rate FiO2 08/19/19 06:26 98.9 55 14 108/57 (74) 100 Room Air Medications No Active Prescriptions or Reported Meds Allergies Coded Allergies: No Known Allergies (Unverified , 09/16/16) ALPHONSO MUÑOZ DO August 19, 2019 09:16
--- NOTE | 2019-08-19 11:39 | MHDSPDOC ---
[facility] Discharge Summary Discharge Summary DATE OF ADMISSION: August 18, 2019 at 21:23 DATE OF DISCHARGE: Aug 17 2018 please see h/p for same day discharge Vital Signs/I&Os Vital Signs Date Time Temp Pulse Resp B/P (MAP) Pulse Ox O2 Delivery O2 Flow Rate FiO2 08/19/19 06:26 98.9 55 14 108/57 (74) 100 Room Air Medications No Active Prescriptions or Reported Meds Allergies Coded Allergies: No Known Allergies (Unverified , 09/16/16) ALPHONSO MUÑOZ DO August 19, 2019 11:39
--- NOTE | 2019-08-20 13:34 | MHCR ---
DATE OF CONSULTATION: 08/18/2019 HISTORY OF PRESENT ILLNESS: Due to the current coronavirus crisis, this patient was seen via telepsychiatry. This patient is a 23-year-old man who was admitted to [facility] in a psychotic state, possibly secondary to methamphetamine abuse. While there, he developed bradycardia and was transferred to the medical service. The patient is now medically stabilized. He does have a heart rate at baseline at 60, but it is felt that this is normal for this patient, so they have asked me to see this patient for transfer back to the psychiatric unit. The patient appears to still be confused and psychotic. He is very guarded but admitted that he still is having some thoughts that he is in danger. The patient could not recall how he ended up in the hospital. He really was not able to give any significant history. PAST PSYCHIATRIC HISTORY: Unable to obtain from the patient, but I did see that he had a prior psychiatric admission at [facility] from 07/22/2019 until 07/26/2019, and at that point he was diagnosed with unspecified psychotic disorder, methamphetamine use disorder, severe, and he presented similarly in a psychotic state and had been abusing methamphetamine. The patient was discharged on no medications. The patient did tell me that he has never actually attempted suicide before, but, of course, it is not known how reliable this is information is. FAMILY HISTORY: He says that there is no psychiatric illness in the family or suicides, but, again, reliability is questionable. MEDICAL HISTORY: As noted above, the patient has sinus bradycardia. SUBSTANCE ABUSE: The patient has been abusing methamphetamine. ABUSE HISTORY: Unable to obtain this information. MENTAL STATUS EXAMINATION: This patient is alert and oriented to person and place. When I asked him what the date was, he actually was able to look on the wall, where every room has a date, and he was able to just read the date to me. The patient's eye contact was fair. I was not able to get much history from him other than the fact that he is having some paranoid thoughts that he is somehow in danger, but he indicated that it was too hard for him to try to explain it to me. The patient's insight and judgment were poor. He was denying suicidal or homicidal ideas. Concentration was poor. Memory was poor. He could not even tell me what his mood was like. Affect flat. DIAGNOSIS: Unspecified depressive disorder and methamphetamine use disorder, severe. TREATMENT PLAN: At this point, the patient is medically cleared. I do feel that he remains psychotic (cut off) psychiatric unit for further evaluation and treatment.
--- NOTE | 2019-08-21 17:54 | IPNPDOC ---
Date Seen The patient was seen on 08/21/19. Progress Note SUBJECTIVE: 22-year-old male was initially admitted to inpatient mental health unit for psychosis/drug use, subsequently transferred to medical floor due to transient episode of hypotension secondary to likely psychiatric medication. Patient was monitored on the medical floor for 24-48 hours, now back to his baseline, transferred back to inpatient mental health unit as he is hemodynamically stable. Patient seen in bed today, without any complaints, reports he is going home later today. He denies any shortness of breath, chest pain, nausea, vomiting or diarrhea. 10 point review of system is negative except for above PHYSICAL EXAMINATION: VITAL SIGNS: Please see below. GENERAL: No distress HEENT: Normocephalic, atraumatic, moist mucous membranes NECK: Supple CARDIOVASCULAR EXAMINATION: S1, S2, no murmurs RESPIRATORY EXAMINATION: Clear to auscultation, no wheezing ABDOMINAL EXAMINATION: Soft, nontender, nondistended, positive bowel sounds EXTREMITIES: Range of motion intact SKIN: No rash NEUROLOGICAL EXAMINATION: Alert and oriented 3, no focal deficits PSYCHIATRIC EXAMINATION: Calm and cooperative LABORATORY DATA, IMAGING STUDIES, MICROBIOLOGY: Please see below. ASSESSMENT AND PLAN: 23-year-old male was admitted to inpatient mental health unit for psychosis/drug abuse. PROBLEMS: 1. Psychosis/drug abuse: Management as per primary team. Patient is medically stable, further management as per primary team, please reconsult as needed. VS, I&O, 24H, Fishbone Vital Signs/I&O Vital Signs Date Time Temp Pulse Resp B/P (MAP) Pulse Ox O2 Delivery O2 Flow Rate FiO2 08/19/19 06:26 98.9 55 14 108/57 (74) 100 Room Air VAHID MATHEW MD August 21, 2019 17:54
== END 2019-08-19 16:00 | disposition home or self-care (01) | DRG 776 ==
LOC: M PSY 21:23
PROVIDERS: ADMIT Psychiatry & Neurology Psychiatry; ATTEND Psychiatry & Neurology Addiction Medicine
DX: F15.20 Other stimulant dependence, uncomplicated (principal)

== ENCOUNTER 2020-06-16 18:12 | Inpatient (IN) | payer MEDICAID, SELFPAY ==
[~2020-06-16] VITALS: Ht 193 cm; Wt 61.8 kg
[2020-06-16 19:43] LABS: HEMATOCRIT 54.1 % (42.0-52.0); HEMOGLOBIN 18.5 g/dl (13.5-17.5); MEAN CORPUSCULAR HEMOGLOBIN 30.5 pg (27.0-33.0); MEAN CORPUSCULAR HGB CONC 34.2 g/dl (32.0-36.5); MEAN CORPUSCULAR VOLUME 89.3 fl (80.0-96.0); PLATELET COUNT, AUTOMATED 175 10^3/uL (150-450); RED BLOOD COUNT 6.06 10^6/uL (4.30-6.10); WHITE BLOOD COUNT 5.5 10^3/uL (4.0-10.0)
[2020-06-16 20:16] LABS: ACETAMINOPHEN LEVEL < 2.0 UG/ML (10.0-30.0); ALBUMIN 4.6 GM/DL (3.2-5.2); ALT/SGPT 17 U/L (12-78); BILIRUBIN,DIRECT 0.3 MG/DL (0.0-0.2); BILIRUBIN,TOTAL 1.7 MG/DL (0.2-1.0); BLOOD UREA NITROGEN 19 MG/DL (7-18); CALCIUM LEVEL 9.7 MG/DL (8.5-10.1); CARBON DIOXIDE LEVEL 27 MEQ/L (21-32); CHLORIDE LEVEL 103 MEQ/L (98-107); CREATININE FOR GFR 1.41 MG/DL (0.70-1.30); ETHYL ALCOHOL (ETHANOL) < 0.003 % (0.000-0.010); GLOMERULAR FILTRATION RATE > 60.0 (>60); GLUCOSE, FASTING 92 MG/DL (70-100); POTASSIUM SERUM 4.5 MEQ/L (3.5-5.1); SALICYLATE LEVEL < 1.7 MG/DL (5.0-30.0); SODIUM LEVEL 138 MEQ/L (136-145); TOTAL PROTEIN 8.3 GM/DL (6.4-8.2)
[2020-06-16] MEDS: OLANZapine 10 MG TAB PO ONE (23:45)
[2020-06-17] MEDS: OLANZapine 10 MG TAB PO ONE (00:09)
[2020-06-17 00:13] LABS: AMPHETAMINES LEVEL URINE POSITIVE (NEGATIVE); BARBITURATES URINE NEGATIVE (NEGATIVE); BENZODIAZEPINES URINE NEGATIVE (NEGATIVE); CANNABINOIDS URINE POSITIVE (NEGATIVE); COCAINE METABOLITE URINE NEGATIVE (NEGATIVE); METHADONE URINE NEGATIVE (NEGATIVE); OPIATES URINE NEGATIVE (NEGATIVE); PHENCYCLIDINE URINE NEGATIVE (NEGATIVE)
[2020-06-17] MEDS ORDERED: OLANZapine 10 MG TAB PO ONE (22:55)
[2020-06-18 13:34] LABS: RSV AMPLIFICATION NEGATIVE (NEGATIVE)
[2020-06-18] MEDS ORDERED: OLANZapine ORAL DISINTEGRATING TAB 5MG PO PRN (17:00)
[2020-06-18] MEDS ORDERED: ACETAMINOPHEN TAB 650MG DOSE (2X325MG) PO PRN (17:00)
[2020-06-18] MEDS ORDERED: MOM 30ML SUSPENSION UDC PO PRN (17:00)
[2020-06-18] MEDS ORDERED: MAALOX 30 ML SUSP *UDC PO PRN (17:00)
[2020-06-18 19:02] VITALS: BP 134/88
--- NOTE | 2020-06-18 19:47 | ECGEPIP ---
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
[2020-06-18] MEDS: PALIPERIDONE 3 MG ER TAB (INVEGA) PO SCH (21:00)
[2020-06-19 06:31] VITALS: BP 99/61
[2020-06-19] MEDS: NICOTINE 21MG/24HR 1 EA TRANSDERMAL TD SCH (09:00)
--- NOTE | 2020-06-19 13:01 | HPEPDOC ---
[facility] Medical History & Physical Date of Admission Jun 18, 2020 Date of Service: Jun 19, 2020 Attending Physician: Charmaine Marsh MD History and Physical MEDICAL H&P HISTORY OF PRESENT ILLNESS: Patient is a 24-year-old male with past mental history of schizophrenia, psychosis, substance abuse, depression, suicidal ideation, sinus bradycardia who was admitted to [facility] with the chief diagnosis of unspecified psychotic disorder. When the patient was evaluated today the patient said very little and would often not respond to my questions. A lot of this history was pulled from emergency room summary and nursing notes. The patient was picked up by police for having odd behavior. 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 He admitted to taking drugs and wanted to come to the hospital to be further evaluated. Since admission to the inpatient mental health unit the patient has been very quiet, has had decreased by mouth intake of food and drink. The patient is not responsive to a lot of questions but has been noted to be talking to himself. On my evaluation the patient admits to hearing voices telling him to do things. When asked about the commands the patient does not respond. He admits to not sleeping well. The patient allowed me to do a brief physical examination but was not open to discussing things further. When asked if he was having chest pain, shortness of breath, nausea, vomiting, diarrhea the patient did not respond. Upon review of his labs the patient appears to be in acute kidney injury likely secondary to decreased by mouth intake. His urine drug screen was positive for amphetamines and cannabinoids. His CBC appears hemoconcentrated likely secondary to dehydration. REVIEW OF SYSTEMS: Unable to obtain PAST MEDICAL HISTORY: schizophrenia, psychosis, substance abuse, depression, suicidal ideation, sinus bradycardia PAST SURGICAL HISTORY: Unknown due to patient's mental status FAMILY HISTORY: Unknown due to patient's mental status SOCIAL HISTORY: Polysubstance abuse with amphetamines, cannabinoids. Full Code ALLERGIES: Please see below. HOME MEDICATIONS: Please see below. PHYSICAL EXAMINATION: VS: Stable on RA CONSTITUTIONAL: thin male, No acute distress, sitting up at chair EYES: PERRLA, EOM intact HENT, MOUTH: Normocephalic, atraumatic, dry mucous membranes NECK: SUPPLE, no JVD, no lymphadenopathy, no carotid bruit CV: Regular rate and rhythm, S1S2 normal, no murmurs/rubs/gallops RESPIRATORY: Clear to auscultation bilaterally, no rales/rhonchi/wheezes GI: BS positive in 4 quadrants, soft, nontender, nondistended, no rebound or guarding, no organomegaly : Deferred MUSCULOSKELETAL: Normal ROM. No cyanosis, clubbing, swelling, joint deformity, extremity edema INTEGUMENTARY: Intact, no rashes, no lesions, no erythema NEUROLOGIC: no focal deficits PSYCHIATRIC: Flat affect, not responding when asked questions often LABORATORY DATA: Please see below IMAGING: None ASSESSMENT: 24-year-old male with past mental history of schizophrenia, psychosis, substance abuse, depression, suicidal ideation, sinus bradycardia who was admitted to [facility] with the chief diagnosis of unspecified psychotic disorder. PLAN: Unspecified psychotic disorder -Plan per psych Acute kidney injury likely 2/2 to decreased PO intake of fluids and food -Cr 1.4 elevated from last on 06/16, no repeat was done. Baseline wnl -f/u labs today, ordered -Would recommend encouragement of fluids Q2H while awake -If Cr increased or has not improved may need IVFs Polysubstance abuse -amphetamines, cannabinoids -Monitor for s/s of withdrawl DISPOSITION: Thank you kindly for this consult. Will follow up on labs ordered above. If abnormal will make suggestions. At this time will sign off but if we are needed again, do not hesitate to contact us at any time. Vital Signs Vital Signs Date Time Temp Pulse Resp B/P (MAP) Pulse Ox O2 Delivery O2 Flow Rate FiO2 06/19/20 06:31 98.0 70 18 99/61 (74) 97 Room Air Home Medications No Active Prescriptions or Reported Meds Allergies Coded Allergies: No Known Allergies (Unverified , 09/16/16) A-FIB/CHADSVASC A-FIB History Current/History of A-Fib/PAF?: No Age/Risk Factor Scoring CHADSVASC: CHADSVASC Response (Comments) Value Age Risk Factor Age < 65 years old 0 Gender Risk Factor Male 0 Hx of CHF No 0 Hx of HTN No 0 Hx of Stroke/TIA/or VTE No 0 Hx of Diabetes No 0 Hx of Vascular Disease No 0 Total 0 Treatment Treatment ordered: NONE Other anticoagulant ordered: none Charmaine Marsh MD Jun 19, 2020 13:01
[2020-06-19 13:46] LABS: HEMATOCRIT 51.1 % (42.0-52.0); HEMOGLOBIN 17.3 g/dl (13.5-17.5); MEAN CORPUSCULAR HEMOGLOBIN 30.1 pg (27.0-33.0); MEAN CORPUSCULAR HGB CONC 33.9 g/dl (32.0-36.5); MEAN CORPUSCULAR VOLUME 88.9 fl (80.0-96.0); PLATELET COUNT, AUTOMATED 210 10^3/uL (150-450); RED BLOOD COUNT 5.75 10^6/uL (4.30-6.10); WHITE BLOOD COUNT 4.7 10^3/uL (4.0-10.0)
[2020-06-19 14:13] LABS: ALT/SGPT 17 U/L (12-78); BILIRUBIN,TOTAL 1.3 MG/DL (0.2-1.0); BLOOD UREA NITROGEN 25 MG/DL (7-18); CALCIUM LEVEL 8.9 MG/DL (8.5-10.1); CARBON DIOXIDE LEVEL 30 MEQ/L (21-32); CHLORIDE LEVEL 102 MEQ/L (98-107); CREATININE FOR GFR 1.45 MG/DL (0.70-1.30); GLOMERULAR FILTRATION RATE > 60.0 (>60); GLUCOSE, FASTING 74 MG/DL (70-100); POTASSIUM SERUM 4.3 MEQ/L (3.5-5.1); SODIUM LEVEL 138 MEQ/L (136-145); TOTAL PROTEIN 7.3 GM/DL (6.4-8.2)
[2020-06-19 16:36] VITALS: BP 116/79
--- NOTE | 2020-06-19 17:23 | MHHPE ---
[facility] HISTORY AND PHYSICAL DATE OF ADMISSION: 06/18/2020 IDENTIFYING DATA: He is a 24-year-old -[place] male, single, who is a poor historian, bizarre, unable to answer questions, internally preoccupied, was admitted for bizarre behavior. CHIEF COMPLAINT: "You guys are torturing me." HISTORY OF PRESENT ILLNESS: He was brought by emergency medical service (EMS), reportedly was picked up at [facility] for being high on drugs. Patient reportedly was acting strangely, not speaking to the police, just nodding yes and no. Sometimes was whispering to himself. On the unit, he has been very isolative, speaking to self, saying that "somebody is taking my mind," not willing to answer any questions, scanning the room, somewhat paranoid, and responding to internal stimuli. When asked the question, "Do you hear voices," he got annoyed, asked "Why are you asking me that question?" Reportedly, patient has had several psychiatric hospitalizations and has been noncompliant with his medications. We will try to procure more information from patient's family. Patient's brother is somewhere close by. PAST PSYCHIATRIC HISTORY: He has a history of multiple psychiatric hospitalizations, history of psychosis. DRUG/ALCOHOL HISTORY: Patient reportedly has been using amphetamines and cannabis and has been losing weight. SUICIDAL HISTORY: Was not obtained. MEDICAL HISTORY: Was not obtained; however, patient reportedly has been losing weight. FAMILY HISTORY: Not available. PERSONAL HISTORY: Not available. MENTAL STATUS EXAMINATION: Thin built, casually dressed in hospital dress, talking to self, scanning and looking around talking to self, partially cooperative. Speech is tangential, incoherent. He is responding to internal stimuli. His insight and judgment are impaired. Attention is poor. VITAL SIGNS: Temperature 98.0, pulse 70, respirations 18, blood pressure 99/61, pulse oximetry 97. LABORATORY DATA: CBC within normal limits. Chemistry within normal limits, although his creatinine was 1.4. REVIEW OF SYSTEMS: Could not be done. Refer to medical evaluation by hospitalist. DIAGNOSES: 1. Schizophrenia spectrum disorder. 2. Polysubstance use disorder. ASSESSMENT AND PLAN: Patient currently is grossly psychotic and he is on no medications. I will admit to inpatient mental health unit (IMHU). He will be seen by hospitalist for medical needs. He will be seen by occupational therapist and case workers. Patient will be kept on suicide precautions and elopement precautions. Patient will receive individual, group and milieu therapy. He will attend activities. MEDICATIONS: - paliperidone 33 mg at night. - olanzapine 5 mg as needed every 6 hours for agitation - trazodone 50 mg at bedtime as needed by mouth for insomnia. ESTIMATED LENGTH OF STAY: Seven to eight days. TIME SPENT: One hour.
[2020-06-19] MEDS: PALIPERIDONE 3 MG ER TAB (INVEGA) PO SCH (21:45)
[2020-06-20 06:47] VITALS: BP 110/64
[2020-06-20 07:46] LABS: HEMATOCRIT 48.8 % (42.0-52.0); HEMOGLOBIN 16.4 g/dl (13.5-17.5); MEAN CORPUSCULAR HEMOGLOBIN 29.5 pg (27.0-33.0); MEAN CORPUSCULAR HGB CONC 33.6 g/dl (32.0-36.5); MEAN CORPUSCULAR VOLUME 87.8 fl (80.0-96.0); PLATELET COUNT, AUTOMATED 182 10^3/uL (150-450); RED BLOOD COUNT 5.56 10^6/uL (4.30-6.10); WHITE BLOOD COUNT 3.3 10^3/uL (4.0-10.0)
[2020-06-20] MEDS: NICOTINE 21MG/24HR 1 EA TRANSDERMAL TD SCH (08:06)
[2020-06-20 08:09] LABS: BLOOD UREA NITROGEN 22 MG/DL (7-18); CALCIUM LEVEL 9.4 MG/DL (8.5-10.1); CARBON DIOXIDE LEVEL 29 MEQ/L (21-32); CHLORIDE LEVEL 104 MEQ/L (98-107); CREATININE FOR GFR 1.14 MG/DL (0.70-1.30); GLOMERULAR FILTRATION RATE > 60.0 (>60); GLUCOSE, FASTING 86 MG/DL (70-100); POTASSIUM SERUM 3.9 MEQ/L (3.5-5.1); SODIUM LEVEL 138 MEQ/L (136-145)
[2020-06-20 16:27] VITALS: BP 102/58
--- NOTE | 2020-06-20 17:23 | MHIPN ---
[facility] PROGRESS NOTE DATE: 06/20/2020 SUBJECTIVE: Patient is sleeping in his bed. Did not want to wake up. Reported that he is feeling better. Denied any side effects. OBJECTIVE: He is a 24-year-old male, single, who is a poor historian. Was admitted because of bizarre behavior, like talking to self and responding to internal stimuli. Was brought by the police. He was placed on paliperidone in the hospital. Patient was noncompliant with his medications. He has a history of previous hospitalization in [place]. Currently somewhat isolative. MENTAL STATUS EXAMINATION: Thin built, casually dressed, lying in his bed. Cooperative. Speech is somewhat tangential, incoherent. He responds to internal stimuli. VITAL SIGNS: Temperature 98.2, pulse is 62, respirations 20, blood pressure 110/64, pulse oximetry 100. LABORATORY DATA: CBC within normal limits. CMP within normal limits. Toxicology was positive for amphetamine and cannabis. DIAGNOSES: 1. Psychotic disorder, unspecified, rule out schizophrenia, paranoid type. 2. Substance use disorder. ASSESSMENT: Patient still is grossly psychotic. Will continue current medications and titrate the dose of medications upward. ESTIMATED LENGTH OF STAY: 4-5 days. TIME SPENT ON THE PATIENT: 25 minutes.
[2020-06-20] MEDS: PALIPERIDONE 3 MG ER TAB (INVEGA) PO SCH (22:00)
[2020-06-21 06:46] VITALS: BP 107/63
[2020-06-21] MEDS: NICOTINE 21MG/24HR 1 EA TRANSDERMAL TD SCH (08:31)
--- NOTE | 2020-06-21 12:56 | MHIPNPDOC ---
[facility] Progress Note Progress Note DATE OF SERVICE: 06/21/20 SUBJECTIVE: Reported his thoughts are clearer that he is feeling better. Denied any side effects of medications OBJECTIVE: He is a 24-year-old male, single, who is a poor historian. Was admitted because of bizarre behavior, like talking to self and responding to internal stimuli. Was brought by the police. He was placed on paliperidone in the hospital. Patient was noncompliant with his medications. He has a history of previous hospitalization in [place]. Currently somewhat isolative. He is conversant.Easily irritable. MENTAL STATUS EXAMINATION: Thin built, casually dressed, lying in his bed. Cooperative. Speech is somewhat tangential, incoherent. He responds to internal stimuli. LABORATORY DATA: CBC within normal limits. CMP within normal limits. Toxicology was positive for amphetamine and cannabis. DIAGNOSES: 1. Psychotic disorder, unspecified, rule out schizophrenia, paranoid type. 2. Substance use disorder. ASSESSMENT: Patient improving. Will continue current medications and titrate the dose of medications upward. ESTIMATED LENGTH OF STAY: 4-5 days. TIME SPENT ON THE PATIENT: 25 minutes. Vital Signs Vital Signs Date Time Temp Pulse Resp B/P (MAP) Pulse Ox O2 Delivery O2 Flow Rate FiO2 06/21/20 06:46 97.9 66 16 107/63 (78) 100 Room Air Current Medications Current Medications Medications (Trade) Dose Ordered Sig/Fani Route PRN Reason Start Time Stop Time Status Last Admin Dose Admin Acetaminophen (Tylenol Tab) 650 mg Q6HP PRN PO HEADACHE or DISCOMFORT 06/18/20 17:00 Al Hydrox/Mg Hydrox/Simethicone (Mylanta) 30 ml Q4HP PRN PO HEARTBURN/INDIGESTION 06/18/20 17:00 Home Med (Med Rec Complete!) ASDIRECTED XX 06/17/20 12:40 06/17/20 12:44 DC Magnesium Hydroxide (Milk Of Magnesia) 30 ml DAILYPRN PRN PO CONSTIPATION 06/18/20 17:00 Nicotine (Nicoderm Cq 21mg) 1 patch DAILY TD 06/19/20 09:00 Olanzapine (ZyPREXA ZYDIS) 5 mg Q6HP PRN PO AGITATION 06/18/20 17:00 Paliperidone (Invega) 3 mg QHS PO 06/18/20 21:00 06/20/20 22:00 Trazodone HCl (Desyrel) 50 mg QHSP PRN PO INSOMNIA 06/18/20 17:00 Allergies Coded Allergies: No Known Allergies (Unverified , 09/16/16) GERRY MARIE MD Jun 21, 2020 12:56
[2020-06-21 16:17] VITALS: BP 123/69
[2020-06-21] MEDS: PALIPERIDONE 3 MG ER TAB (INVEGA) PO SCH (21:46)
[2020-06-22 06:00] VITALS: BP 141/92
[2020-06-22] MEDS: NICOTINE 21MG/24HR 1 EA TRANSDERMAL TD SCH (09:00)
--- NOTE | 2020-06-22 15:07 | MHIPNPDOC ---
[facility] Progress Note Progress Note DATE OF SERVICE: 06/22/20 SUBJECTIVE: Reported his thoughts are clearer that he is feeling better. Denied any side effects of medications.Reported that he used methamphetamine before he came to the hospital. OBJECTIVE: He is a 24-year-old male, single, who is a poor historian. Was admitted because of bizarre behavior, like talking to self and responding to internal stimuli. Was brought by the police. He was placed on paliperidone in the hospital. Patient was noncompliant with his medications. He has a history of previous hospitalization in [place]. Currently somewhat isolative. He is conversant.Reports he slept well. MENTAL STATUS EXAMINATION: Thin built, casually dressed, lying in his bed. Cooperative. Speech is somewhat tangential, rate ,rhythm and volume are good, mood depressed, affect mood congruent.,denied suicidal homicidal ideas.insight and judgement limited. LABORATORY DATA: CBC within normal limits. CMP within normal limits. Toxicology was positive for amphetamine and cannabis. DIAGNOSES: 1. Psychotic disorder, unspecified, rule out schizophrenia, paranoid type. 2. Substance use disorder. ASSESSMENT: Patient improving. Will continue current medications and titrate the dose of medications upward. ESTIMATED LENGTH OF STAY: 4-5 days. TIME SPENT ON THE PATIENT: 25 minutes. Vital Signs Vital Signs Date Time Temp Pulse Resp B/P (MAP) Pulse Ox O2 Delivery O2 Flow Rate FiO2 06/22/20 06:00 98.1 64 18 141/92 (108) 98 06/21/20 16:17 Room Air Current Medications Current Medications Medications (Trade) Dose Ordered Sig/Fani Route PRN Reason Start Time Stop Time Status Last Admin Dose Admin Acetaminophen (Tylenol Tab) 650 mg Q6HP PRN PO HEADACHE or DISCOMFORT 06/18/20 17:00 Al Hydrox/Mg Hydrox/Simethicone (Mylanta) 30 ml Q4HP PRN PO HEARTBURN/INDIGESTION 06/18/20 17:00 Home Med (Med Rec Complete!) ASDIRECTED XX 06/17/20 12:40 06/17/20 12:44 DC Magnesium Hydroxide (Milk Of Magnesia) 30 ml DAILYPRN PRN PO CONSTIPATION 06/18/20 17:00 Nicotine (Nicoderm Cq 21mg) 1 patch DAILY TD 06/19/20 09:00 Olanzapine (ZyPREXA ZYDIS) 5 mg Q6HP PRN PO AGITATION 06/18/20 17:00 Paliperidone (Invega) 3 mg QHS PO 06/18/20 21:00 06/21/20 21:46 Trazodone HCl (Desyrel) 50 mg QHSP PRN PO INSOMNIA 06/18/20 17:00 Allergies Coded Allergies: No Known Allergies (Unverified , 09/16/16) GERRY MARIE MD Jun 22, 2020 15:06
[2020-06-22 16:15] VITALS: BP 119/68
[2020-06-22] MEDS: PALIPERIDONE 3 MG ER TAB (INVEGA) PO SCH (20:16)
[2020-06-22] MEDS: traZODone 50 MG TAB PO PRN (20:16)
[2020-06-23 06:31] VITALS: BP 136/61
[2020-06-23] MEDS: NICOTINE 21MG/24HR 1 EA TRANSDERMAL TD SCH (09:00)
[2020-06-23 16:22] VITALS: BP 114/60
[2020-06-23] MEDS: traZODone 50 MG TAB PO PRN (20:54)
[2020-06-23] MEDS: PALIPERIDONE 3 MG ER TAB (INVEGA) PO SCH (20:55)
[2020-06-24 06:26] VITALS: BP 121/60
[2020-06-24] MEDS: NICOTINE 21MG/24HR 1 EA TRANSDERMAL TD SCH (07:34)
[2020-06-24 16:32] VITALS: BP 122/71
[2020-06-24] MEDS: traZODone 50 MG TAB PO PRN (20:44)
[2020-06-24] MEDS: PALIPERIDONE 3 MG ER TAB (INVEGA) PO SCH (20:45)
[2020-06-25 06:00] VITALS: BP 115/60
[2020-06-25] MEDS: NICOTINE 21MG/24HR 1 EA TRANSDERMAL TD SCH (09:00)
--- NOTE | 2020-06-25 16:02 | MHIPNPDOC ---
[facility] Progress Note Progress Note DATE OF SERVICE: 06/25/20 SUBJECTIVE: Reported his thoughts are clearer that he is feeling better. Denied any side effects of medications.Reported that he used methamphetamine before he came to the hospital. OBJECTIVE: He is a 24-year-old male, single, who is a poor historian. Was admitted because of bizarre behavior, like talking to self and responding to internal stimuli. Was brought by the police. He was placed on paliperidone in the hospital. Patient was noncompliant with his medications. He has a history of previous hospitalization in [place]. Currently somewhat isolative. He is conversant.Reports he slept well.His mother is in [place] She is trying to make some arrangements before He comes back. Currently denies or MENTAL STATUS EXAMINATION: Thin built, casually dressed, lying in his bed. Cooperative. Speech is somewhat tangential, rate ,rhythm and volume are good, mood depressed, affect mood congruent.,denied suicidal homicidal ideas.insight and judgement limited. LABORATORY DATA: CBC within normal limits. CMP within normal limits. Toxicology was positive for amphetamine and cannabis. DIAGNOSES: 1. Psychotic disorder, unspecified, rule out schizophrenia, paranoid type. 2. Substance use disorder. ASSESSMENT: Patient improving. Will continue current medications and titrate the dose of medications upward. ESTIMATED LENGTH OF STAY: 4-5 days. TIME SPENT ON THE PATIENT: 25 minutes. Vital Signs Vital Signs Date Time Temp Pulse Resp B/P (MAP) Pulse Ox O2 Delivery O2 Flow Rate FiO2 06/25/20 06:00 98.5 55 18 115/60 (78) 100 06/24/20 16:32 Room Air Current Medications Current Medications Medications (Trade) Dose Ordered Sig/Fani Route PRN Reason Start Time Stop Time Status Last Admin Dose Admin Acetaminophen (Tylenol Tab) 650 mg Q6HP PRN PO HEADACHE or DISCOMFORT 06/18/20 17:00 Al Hydrox/Mg Hydrox/Simethicone (Mylanta) 30 ml Q4HP PRN PO HEARTBURN/INDIGESTION 06/18/20 17:00 Home Med (Med Rec Complete!) ASDIRECTED XX 06/17/20 12:40 06/17/20 12:44 DC Magnesium Hydroxide (Milk Of Magnesia) 30 ml DAILYPRN PRN PO CONSTIPATION 06/18/20 17:00 Nicotine (Nicoderm Cq 21mg) 1 patch DAILY TD 06/19/20 09:00 Olanzapine (ZyPREXA ZYDIS) 5 mg Q6HP PRN PO AGITATION 06/18/20 17:00 Paliperidone (Invega) 3 mg QHS PO 06/18/20 21:00 06/22/20 20:16 Trazodone HCl (Desyrel) 50 mg QHSP PRN PO INSOMNIA 06/18/20 17:00 06/24/20 20:44 Allergies Coded Allergies: No Known Allergies (Unverified , 09/16/16) GERRY MARIE MD Jun 25, 2020 16:02
[2020-06-25 18:55] VITALS: BP 133/73
[2020-06-25] MEDS: traZODone 50 MG TAB PO PRN (20:26)
[2020-06-25] MEDS: PALIPERIDONE 3 MG ER TAB (INVEGA) PO SCH (20:27)
[2020-06-26 07:16] VITALS: BP 124/62
[2020-06-26] MEDS: NICOTINE 21MG/24HR 1 EA TRANSDERMAL TD SCH (08:49)
--- NOTE | 2020-06-26 16:17 | MHIPNPDOC ---
[facility] Progress Note Progress Note DATE OF SERVICE: 06/26/20 SUBJECTIVE: Reported his thoughts are clearer that he is feeling better. Denied any side effects of medications.Reported that he used methamphetamine before he came to the hospital.Insisting on discharge. OBJECTIVE: He is a 24-year-old male, single, who is a poor historian. Was admitted because of bizarre behavior, like talking to self and responding to internal stimuli. Was brought by the police. He was placed on paliperidone in the hospital. Patient was noncompliant with his medications. He has a history of previous hospitalization in [place]. Currently somewhat isolative. He is conversant.Reports he slept well.His mother is in [place] She is trying to make some arrangements before He comes back. Currently denies AH or VH.His sleep some what disturbed. MENTAL STATUS EXAMINATION: Thin built, casually dressed, lying in his bed. Cooperative. Speech is somewhat tangential, rate ,rhythm and volume are good, mood depressed, affect mood congruent.,denied suicidal homicidal ideas.insight and judgement limited. LABORATORY DATA: CBC within normal limits. CMP within normal limits. Toxicology was positive for amphetamine and cannabis. DIAGNOSES: 1. Psychotic disorder, unspecified, rule out schizophrenia, paranoid type. 2. Substance use disorder. ASSESSMENT: Patient improving. Will continue current medications and titrate the dose of medications upward. ESTIMATED LENGTH OF STAY: 4-5 days. TIME SPENT ON THE PATIENT: 25 minutes. HISTORY: . VITAL SIGNS: See below. Vital Signs Vital Signs Date Time Temp Pulse Resp B/P (MAP) Pulse Ox O2 Delivery O2 Flow Rate FiO2 06/26/20 07:16 97.7 58 14 124/62 (82) 100 Room Air Current Medications Current Medications Medications (Trade) Dose Ordered Sig/Fani Route PRN Reason Start Time Stop Time Status Last Admin Dose Admin Acetaminophen (Tylenol Tab) 650 mg Q6HP PRN PO HEADACHE or DISCOMFORT 06/18/20 17:00 Al Hydrox/Mg Hydrox/Simethicone (Mylanta) 30 ml Q4HP PRN PO HEARTBURN/INDIGESTION 06/18/20 17:00 Home Med (Med Rec Complete!) ASDIRECTED XX 06/17/20 12:40 06/17/20 12:44 DC Magnesium Hydroxide (Milk Of Magnesia) 30 ml DAILYPRN PRN PO CONSTIPATION 06/18/20 17:00 Nicotine (Nicoderm Cq 21mg) 1 patch DAILY TD 06/19/20 09:00 Olanzapine (ZyPREXA ZYDIS) 5 mg Q6HP PRN PO AGITATION 06/18/20 17:00 Paliperidone (Invega) 3 mg QHS PO 06/18/20 21:00 06/22/20 20:16 Trazodone HCl (Desyrel) 50 mg QHSP PRN PO INSOMNIA 06/18/20 17:00 06/25/20 20:26 Allergies Coded Allergies: No Known Allergies (Unverified , 09/16/16) GERRY MARIE MD Jun 26, 2020 16:17
[2020-06-26 18:09] VITALS: BP 133/79
[2020-06-26] MEDS: PALIPERIDONE 3 MG ER TAB (INVEGA) PO SCH (21:00)
[2020-06-27 06:00] VITALS: BP 121/73
[2020-06-27] MEDS: NICOTINE 21MG/24HR 1 EA TRANSDERMAL TD SCH (08:45)
--- NOTE | 2020-06-27 15:58 | MHIPNPDOC ---
[facility] Progress Note Progress Note DATE OF SERVICE: 06/27/20 SUBJECTIVE: Reported his thoughts are clearer that he is feeling better. Denied any side effects of medications.Reported that he used methamphetamine before he came to the hospital.Insisting on discharge.Denies any AH or VH OBJECTIVE: He is a 24-year-old male, single, Was admitted because of bizarre behavior, like talking to self and responding to internal stimuli. Was brought by the police. He was placed on paliperidone in the hospital. Patient was noncompliant with his medications. He has a history of previous hospitalization in [place]. Currently somewhat isolative. He is conversant.Reports he slept well.His mother is in [place] She is trying to make some arrangements before He comes back. Currently denies AH or VH.His sleep some what disturbed. MENTAL STATUS EXAMINATION: Thin built, casually dressed, lying in his bed. Cooperative. Speech is somewhat tangential, rate ,rhythm and volume are good, mood depressed, affect mood congruent.,denied suicidal homicidal ideas.insight and judgement limited. LABORATORY DATA: CBC within normal limits. CMP within normal limits. Toxicology was positive for amphetamine and cannabis. DIAGNOSES: 1. Psychotic disorder, unspecified, rule out schizophrenia, paranoid type. 2. Substance use disorder. ASSESSMENT: Patient improving. Will continue current medications and titrate the dose of medications upward. ESTIMATED LENGTH OF STAY: 4-5 days. TIME SPENT ON THE PATIENT: 25 minutes. Vital Signs Vital Signs Date Time Temp Pulse Resp B/P (MAP) Pulse Ox O2 Delivery O2 Flow Rate FiO2 06/27/20 06:00 98.1 54 16 121/73 (89) 100 06/26/20 07:16 Room Air Current Medications Current Medications Medications (Trade) Dose Ordered Sig/Fani Route PRN Reason Start Time Stop Time Status Last Admin Dose Admin Acetaminophen (Tylenol Tab) 650 mg Q6HP PRN PO HEADACHE or DISCOMFORT 06/18/20 17:00 Al Hydrox/Mg Hydrox/Simethicone (Mylanta) 30 ml Q4HP PRN PO HEARTBURN/INDIGESTION 06/18/20 17:00 Home Med (Med Rec Complete!) ASDIRECTED XX 06/17/20 12:40 06/17/20 12:44 DC Magnesium Hydroxide (Milk Of Magnesia) 30 ml DAILYPRN PRN PO CONSTIPATION 06/18/20 17:00 Nicotine (Nicoderm Cq 21mg) 1 patch DAILY TD 06/19/20 09:00 Olanzapine (ZyPREXA ZYDIS) 5 mg Q6HP PRN PO AGITATION 06/18/20 17:00 Paliperidone (Invega) 3 mg QHS PO 06/18/20 21:00 06/22/20 20:16 Trazodone HCl (Desyrel) 50 mg QHSP PRN PO INSOMNIA 06/18/20 17:00 06/25/20 20:26 Allergies Coded Allergies: No Known Allergies (Unverified , 09/16/16) GERRY MARIE MD Jun 27, 2020 15:58
[2020-06-27 18:03] VITALS: BP 124/78
[2020-06-27] MEDS: PALIPERIDONE 3 MG ER TAB (INVEGA) PO SCH (21:00)
[2020-06-28 06:35] VITALS: BP 133/61
[2020-06-28] MEDS: NICOTINE 21MG/24HR 1 EA TRANSDERMAL TD SCH (09:00)
[2020-06-28 10:45] LABS: HEMATOCRIT 44.9 % (42.0-52.0); HEMOGLOBIN 15.1 g/dl (13.5-17.5); MEAN CORPUSCULAR HGB CONC 33.6 g/dl (32.0-36.5); MEAN CORPUSCULAR VOLUME 89.3 fl (80.0-96.0); PLATELET COUNT, AUTOMATED 198 10^3/uL (150-450); RED BLOOD COUNT 5.03 10^6/uL (4.30-6.10); WHITE BLOOD COUNT 5.1 10^3/uL (4.0-10.0)
[2020-06-28] MEDS ORDERED: PALI1TAB2 PO (10:52)
--- NOTE | 2020-06-28 12:27 | MHDS ---
[facility] DISCHARGE SUMMARY DATE OF ADMISSION: 06/18/2020 DATE OF DISCHARGE: 06/28/2020 DIAGNOSES: 1. Schizophrenia spectrum disorder. 2. Polysubstance dependence. 3. Amphetamine use disorder. 4. Cannabis use disorder. IDENTIFYING DATA: This is a 24-year-old male, single, was admitted because of bizarre behavior. He was brought by the police because of strange behavior, responding to internal stimuli. For history of present illness (HPI), past psychiatric history, family history, personal history, medical history, please refer to the initial evaluation. COURSE IN THE HOSPITAL: Patient initially was grossly psychotic, was responding to internal stimuli, unable to answer any questions. He was placed on paliperidone 12 mg at night. Individual, group and milieu therapy was continued. Patient slowly started attending groups. He was attending activities. Patient's hallucinations/delusions slowly started resolving. Mostly, he becomes psychotic when he uses drugs. He started sleeping better, was interacting better with peers and staff. Denied any suicidal or homicidal ideas. Denied any side effects from the medication. He was stable at the time of discharge. He wants to go back to [place], [place], to be with his grandmother. MENTAL STATUS EXAMINATION: Casually dressed, cooperative, made good eye contact. Speech: Rate, rhythm, volume are good. Mood euthymic with mood congruent affect. Thought process: Linear and goal-directed. Thought content: Denied any suicidal or homicidal ideas. Denied any auditory or visual hallucinations. Insight and judgment are fair. Memory: Immediate, remote, recent are good. VITAL SIGNS: Temperature 98.9, pulse 52, respiratory rate 16, blood pressure 133/61, pulse oximetry 100. LABORATORY DATA: CBC within normal limits, though there was some leukopenia. He was advised to do his blood test again. CMP within normal limits. Blood toxicology was positive for amphetamines and cannabis. DISCHARGE MEDICATIONS: - paliperidone 3 mg at night DISCHARGE PLAN: He will be discharged to [facility]. Patient will call his outpatient providers for medical as well as psychiatric issues. Also, he will go into Alcoholics Anonymous (AA) meetings and outpatient rehabilitation.
== END 2020-06-28 11:27 | disposition home or self-care (01) | DRG 751 ==
LOC: M ED 18:12 → M ED INP 06-18 16:58 → M PSY 06-18 18:27
PROVIDERS: ADMIT Psychiatry & Neurology Psychiatry; ATTEND Psychiatry & Neurology Psychiatry
DX: F29 Unspecified psychosis not due to a substance or known physiological condition (principal); N17.9 Acute kidney failure, unspecified; F15.10 Other stimulant abuse, uncomplicated; F12.10 Cannabis abuse, uncomplicated